=== PATIENT | female | born 1980 | race Two or more races ===

== ENCOUNTER → 2020-11-09 12:37 | Outpatient (BNVA) | payer OTHER, SELFPAY | PROVIDERS: PCP Internal Medicine; Visit Provider Internal Medicine | DX: R00.1 Bradycardia, unspecified (principal); R55 Syncope and collapse; R07.2 Precordial pain | CPT/HCPCS: 93005; 99202 ==

== ENCOUNTER → 2020-11-23 13:30 | Outpatient (REF) | payer OTHER, SELFPAY | LOC: HO.SL 13:30 | PROVIDERS: Visit Provider Internal Medicine | DX: G47.33 Obstructive sleep apnea (adult) (pediatric) (principal) | CPT/HCPCS: 95806 ==

== ENCOUNTER → 2020-12-06 12:57 | Outpatient (REF) | payer OTHER, SELFPAY ==
--- NOTE | 2020-12-06 13:00 | CA_ITS ---
Transthoracic Echocardiogram Patient (Last, First, Middle): Kellen Cohn, Gender: Female Date of : 1980 Age: 40 Procedure Date: 12/06/2020 Procedure Type: Transthoracic Echocardiogram Location: OP Height: 152.4 cm Weight: 72.58 kg BSA: 1.70 m2 Heart Rate: bpm BP: 90 / 60 mmHg Delinquent Tax Collection Assistant: LENNOX Huddleston MD: Claudio Wilkerson MD Chief Medical Director: Jose Enrique Paul MD Symptoms: R55 - Syncope and collapse Study Quality: Good ECG Rhythm: Sinus Conclusions: - Essentially normal study with trivial aortic regurgitation Findings Left Ventricle Normal left ventricular size, thickness, and systolic function. The visually estimated ejection fraction is between 60-65%. Diastolic function is normal for age. Right Ventricle Normal right ventricular cavity size and systolic function. Atria Both atria are normal in size. There is no evidence of interatrial shunt. Aortic Valve The aortic valve structure and function is likely normal. There is no aortic valve stenosis. There is trace (trivial) aortic valve regurgitation. Mitral Valve Normal mitral valve structure and function. There is trace mitral valve regurgitation. There is no mitral valve stenosis. Pulmonic Valve The pulmonic valve was not well visualized. Tricuspid Valve Likely normal tricuspid valve structure and function. There is trace tricuspid valve regurgitation. The right ventricular systolic pressure is normal. The right ventricular systolic pressure is 23 mmHg. Normal right atrial pressure. There is no evidence of pulmonary hypertension. Great Vessels All visible segments of the aorta are normal in size. The pulmonary artery was not well visualized. Venous The inferior vena cava is normal in size and collapses greater than 50% with inspiration. Pericardium/Pleural There is no evidence of pericardial effusion. Prior Study Comparison No previous study in the last 5 years for comparison Measurements M-Mode Liner Measurements Normals - Women/Men AOV Cusps: 2.00 1.5-2.6 cm/m2 2D Linear Measurements IVSd: 0.79 0.6-0.9/0.6-1.0 cm LVIDd: 4.47 3.9-5.3/4.2-5.9 cm LVIDd Index: 2.63 2.4-3.2/2.2-3.1 cm/m2 LVIDs: 3.26 2.0-3.6 cm LVPWd: 0.77 0.7-1.1 cm Ao Root: 3.10 2.1-3.5 cm LA Diam: 3.00 2.7-3.8/3.0-4.0 cm LAIDs Index: 1.76 1.5-2.3 cm/m2 LV Mass: 134.80 67-162/88-224 g LV Mass Index: 79.29 43-95/49-115 g/m2 LVOT Diam: 1.90 3.0+(-)1.3 cm 2D Systolic Function EF 4C: 57.70 >55% EF 2C: 67.70 >55% EF BiP: 61.50 >55% Mitral Valve MV Pk E: 1.01 MV PK A: 0.65 MV Decel Time: 278.00 E/A: 1.60 E'Lateral: 14.30 E'Medial: 9.68 E/E' Med: 10.40 E/E' Lat: 7.10 PHT: 81.00 MVA PHT: 2.[address]: 3.64 Aortic Valve AoV Pk Wade: 1.42 AoV Pk Grad: 8.00 AI Pk Wade: 3.[address]: 1.90 LVOT LVOT Pk Wade: 0.70 LVOT Mn Wade: 0.48 LVOT VTI: 0.16 LVOT Pk Grad: 2.00 LVOT Mn Grad: 1.00 LVOT Diam: 1.90 LVOT Area: 2.84 Diastolic Function MV Pk E: 1.01 MV Pk A: 0.65 E/A: 1.60 E'Medial: 9.68 E/E' Med: 10.40 E' Laterial: 14.30 E/E' Lat: 7.10 Tricuspid Valve TR Pk Wade: 2.22 TR Pk Grad: 20.00 RA Press: 3.00 RVSP: 23.00 Great Vessels Aorta Ao Root-2D: 3.10 2.0-3.7 cm Ao Asc: 3.00 2.1-3.4 cm Ao Arch: 2.40 Pulmonary Valve PV Pk Wade: 0.90 Peak PV Grad: 3.00 Updated in Other Vendor System with Status of Final Jose Enrique Paul MD electronically signed on 12/06/2020 6:07:27 PM with status of Final
== END ==
LOC: HO.CARD 12:57
PROVIDERS: Visit Provider Internal Medicine
DX: R55 Syncope and collapse (principal); R00.1 Bradycardia, unspecified
CPT/HCPCS: 93306

== ENCOUNTER 2020-12-06 14:03 | Emergency (ER) | payer OTHER, SELFPAY ==
[2020-12-06 14:08] VITALS: BP 121/82; PULSE 58; RESP 10; TEMP 37; O2SAT 99; BMI 31.2
--- NOTE | 2020-12-06 14:25 | XR_ITS ---
EXAMINATION: XR CHEST CLINICAL INFORMATION: Chest pain COMPARISON: Previous chest x-ray most recent June 2020 TECHNIQUE: Frontal view of the chest was obtained. FINDINGS: No significant abnormality is noted involving the heart, lungs, mediastinum, bony thorax or soft tissues. XR/XR chest 1V IMPRESSION: Unremarkable examination.
--- NOTE | 2020-12-06 14:25 | ECG_ITS ---
Test Reason : HYPOTENSION Blood Pressure : / mmHG Vent. Rate : 052 BPM Atrial Rate : 052 BPM P-R Int : 164 ms QRS Dur : 072 ms QT Int : 418 ms P-R-T Axes : 044 010 020 degrees QTc Int : 388 ms Sinus bradycardia with Sinus Arrhythmia Otherwise normal ECG When compared with ECG of 28-JUN-2020 16:20, Sinus rhythm has replaced Junctional rhythm Referred By: Olinda Tang Electronically Signed By:KAY LOAIZA MD
--- NOTE | 2020-12-06 14:37 | ED.CHESTPAIN ---
HPI - Chest Pain General Chief Complaint: Chest Pain Stated Complaint: cardiac issues Time Seen by Provider: 12/06/20 14:13 Mode of arrival: ambulatory History of Present Illness HPI narrative: 40-year-old female with a past medical history anxiety, bipolar, fibromyalgia, insomnia, migraines, sinus bradycardia, presenting to the ED from Cardiology/ECHO suite s/p feeling sharp/substernal chest pressure with associated lightheadedness, generalized fatigue/malaise. Admits symptoms have been going on times 2-3 weeks, with radiation to left arm and left arm tingling. Was evaluated by cardiology Dr. Wilkerson on 11/09 and sent for this echo. Reports symptoms are consistent, unchanged, not worse today. Per cardiology note patient with history of bradycardia x multiple years MD complaint: chest heaviness Related Data Home Medications Medication Instructions Recorded Confirmed duloxetine 60 mg capsule,delayed 60 mg PO DAILY 11/09/20 11/09/20 release famotidine 20 mg tablet 20 mg PO DAILY 11/09/20 11/09/20 sumatriptan succinate 100 mg tablet 100 mg PO ONCE tab 11/09/20 11/09/20 venlafaxine 75 mg capsule,extended 75 mg PO QAM 11/09/20 11/09/20 release 24 hr Allergies Allergy/AdvReac Type Severity Reaction Status Date / Time No Known Allergies Allergy Verified 12/06/20 14:14 [No Known Allergies*] Review of Systems Review of Systems: Constitutional: No Weight loss, No Fever, No Chills, + fatigue/malaise ENT/Mouth: No Ear Pain, No Nasal Congestion, No Sinus Pain, No sore throat, No Rhinorrhea Eyes: No Eye Pain, No Swelling, No Redness, No Foreign Body, No Discharge, No Vision Changes Cardiovascular: +Chest Pain, + SOB, No Dyspnea on Exertion, No Orthopnea, No Edema, No Palpitations Respiratory: No Cough, No Sputum, No Wheezing, No Smoke Exposure, No Dyspnea Gastrointestinal: No Nausea, No Vomiting, No Diarrhea, No Constipation, No Abdominal pain Musculoskeletal: No joint pain, No Myalgias, No Joint Swelling Skin: No Skin Lesions, No rash Neuro: +generalized Weakness, No Numbness, + left arm tingling, No Loss of Consciousness, + lightheadedness, No Headache Yes all other systems are reviewed and are negative [facility] Past Medical History Medical History (Updated 12/06/20 @ 16:53 by EMERALD Pandya) Anxiety Bipolar 1 disorder, depressed Fibromyalgia Insomnia Migraine Short-term memory loss Sinus bradycardia by electrocardiogram Family History Family History (Updated 11/09/20 @ 13:31 by DOMENIC Issa) Father No problems noted. Mother No problems noted. Social History Social History (Updated 11/09/20 @ 13:31 by DOMENIC Issa) Smoking Status: Current every day smoker Advance Directives: No Advance Directives Information Provided: Yes Physical Exam Vital Signs: Vital Signs: Last Vital Signs Temp 98.6 F 12/06/20 14:08 Pulse 53 12/06/20 16:57 Resp 16 12/06/20 16:57 BP 128/73 12/06/20 16:57 Pulse Ox 99 12/06/20 16:57 Body Mass Index 31.2 Course Course Course Narrative: -labs unremarkable including troponin discussed with patient including worrisome signs and symptoms and strict return precautions. Patient is to have close follow-up with Cardiology -orthostatic vital signs negative MDM - Chest Pain MDM Narrative Medical decision making narrative: 40-year-old female with a past medical history anxiety, bipolar, fibromyalgia, insomnia, migraines, sinus bradycardia, presenting to the ED from Cardiology/ECHO suite s/p feeling sharp/substernal chest pressure with associated lightheadedness, generalized fatigue/malaise. On exam VSS, NAD, playing on phone during exam, lungs CTA. Lower concern for ACS or PE, as symptoms are atypical. ?Viral syndrome/COVID-19. Low concern for pneumonia. Rule out metabolic abnormalities Plan: EKG, labs, CXR, re-evaluate Medical Records Data Attestation: I reviewed the patient's medical records. Lab Data Attestation: I reviewed the patient's lab results. Result diagrams: 12/06/20 15:39 12/06/20 15:39 Labs: Lab Results 12/06/20 12/06/20 12/06/20 Range/Units 15:25 15:37 15:38 WBC (4.8-10.8) X10*3/uL RBC (4.20-5.50) X10*6/uL Hgb (12.0-16.0) g/dl Hct (37-47) % MCV (80-98) fL MCH (27.0-33.0) pg MCHC (31.0-35.0) g/dl RDW (11.0-16.0) % Plt Count (160-400) X10*3/uL MPV Immature Gran % (Auto) (0.0-0.4) % Neut % (Auto) (45-73) % Lymph % (Auto) (20-40) % Brooke % (Auto) (2-11) % Eos % (Auto) (0-4) % Baso % (Auto) (0-2) % Lymph # (Auto) (1.2-4.9) X10*3/uL Brooke # (Auto) (0.1-1.2) X10*3/uL Eos # (Auto) (0.0-0.4) X10*3/uL Baso # (Auto) (0.0-0.2) X10*3/uL Abs Immat Gran (auto) (0.00-0.03) X10*3/uL Absolute Neuts (auto) (2.0-8.3) X10*3/uL Absolute Nucleated RBC (0.0-0.012) X10*3/uL Nucleated RBC % (auto) (0.0-0.2) /100WBC Hold Blue Top Sodium (135-145) mmol/L Potassium (3.3-5.1) mmol/L Chloride (96-108) mmol/L Carbon Dioxide (22-29) mmol/L Anion Gap (12-20) BUN (9-16) mg/dL Creatinine (0.5-1.4) mg/dL Estim Creat Clear Calc Estimated GFR Random Glucose (60-115) mg/dL Calcium (8.4-10.2) mg/dL Magnesium (1.6-2.6) mg/dL Total Bilirubin (0.0-1.0) mg/dL Direct Bilirubin (0.0-0.5) mg/dL AST (5-31) U/L ALT (0-31) U/L Alkaline Phosphatase (39-117) U/L Troponin I High Sens < 3.5 (<3.5-17.0) ng/L B-Natriuretic Peptide Cancelled 35 Total Protein (6.5-8.0) g/dL Albumin (3.5-5.0) g/dL TSH (0.32-4.0) uIU/mL Coronavirus (PCR) NEGATIVE (Negative) Influenza Type A (PCR) NEGATIVE (Negative) Influenza Type B (PCR) NEGATIVE (Negative) RSV RNA Qual (PCR) NEGATIVE (Negative) 12/06/20 12/06/20 12/06/20 Range/Units 15:38 15:39 15:39 WBC 6.1 (4.8-10.8) X10*3/uL RBC 4.65 (4.20-5.50) X10*6/uL Hgb 14.6 (12.0-16.0) g/dl Hct 42.2 (37-47) % MCV 90.8 (80-98) fL MCH 31.4 (27.0-33.0) pg MCHC 34.6 (31.0-35.0) g/dl RDW 12.3 (11.0-16.0) % Plt Count 164 (160-400) X10*3/uL MPV Not Reportable Immature Gran % (Auto) 0.5 H (0.0-0.4) % Neut % (Auto) 44.8 L (45-73) % Lymph % (Auto) 47.4 H (20-40) % Brooke % (Auto) 5.3 (2-11) % Eos % (Auto) 1.5 (0-4) % Baso % (Auto) 0.5 (0-2) % Lymph # (Auto) 2.9 (1.2-4.9) X10*3/uL Brooke # (Auto) 0.3 (0.1-1.2) X10*3/uL Eos # (Auto) 0.1 (0.0-0.4) X10*3/uL Baso # (Auto) 0.0 (0.0-0.2) X10*3/uL Abs Immat Gran (auto) 0.03 (0.00-0.03) X10*3/uL Absolute Neuts (auto) 2.7 (2.0-8.3) X10*3/uL Absolute Nucleated RBC 0.000 (0.0-0.012) X10*3/uL Nucleated RBC % (auto) 0.0 (0.0-0.2) /100WBC Hold Blue Top SEE NOTE Sodium 139 (135-145) mmol/L Potassium 4.1 (3.3-5.1) mmol/L Chloride 107 (96-108) mmol/L Carbon Dioxide 25 (22-29) mmol/L Anion Gap 11 L (12-20) BUN 6 L (9-16) mg/dL Creatinine 0.72 (0.5-1.4) mg/dL Estim Creat Clear Calc 92.3 Estimated GFR > 60 Random Glucose 73 (60-115) mg/dL Calcium 9.0 (8.4-10.2) mg/dL Magnesium 2.1 (1.6-2.6) mg/dL Total Bilirubin 0.6 (0.0-1.0) mg/dL Direct Bilirubin 0.3 (0.0-0.5) mg/dL AST 17 (5-31) U/L ALT 16 (0-31) U/L Alkaline Phosphatase 70 (39-117) U/L Troponin I High Sens (<3.5-17.0) ng/L B-Natriuretic Peptide Total Protein 7.4 (6.5-8.0) g/dL Albumin 4.1 (3.5-5.0) g/dL TSH 3.63 (0.32-4.0) uIU/mL Coronavirus (PCR) (Negative) Influenza Type A (PCR) (Negative) Influenza Type B (PCR) (Negative) RSV RNA Qual (PCR) (Negative) ECG Data ECG #1: Attestation: I personally reviewed and interpreted this ECG as follows: ECG interpretation date: 12/06/20 ECG interpretation time: 15:13 Interpretation: EKG sinus bradycardia rate 52. Nonischemic. QTC 388 Discharge Plan Discharge Clinical Impression: Atypical chest pain Patient Disposition: Home, Self-Care Instructions: Chest Pain (ED) Additional Instructions: Your blood work was reassuring today in the ED. You need to follow-up with her health center assistant. Make sure staying hydrated at home. Take Tylenol /Motrin for pain. If her symptoms persist or worsen, you have fever, shortness of breath, leg swelling return to the ED Prescriptions: No Action famotidine 20 mg tablet 20 mg PO DAILY RF: 0 sumatriptan succinate 100 mg tablet 100 mg PO ONCE RF: 0 duloxetine 60 mg capsule,delayed release(DR/EC) 60 mg PO DAILY RF: 0 venlafaxine 75 mg capsule,extended release 24hr 75 mg PO QA RF: 0 Referrals: Claudio Wilkerson MD [Physician] - 2 days
[2020-12-06 16:00] LABS: Imm Gran Abs Auto 0.03 X10*3/uL (0.00-0.03); Imm Gran Pct Auto 0.5 % (0.0-0.4); Neutrophils Absolute Auto 2.7 X10*3/uL (2.0-8.3); PLT CLUMP 1; Red Cell Distribution Width 12.3 % (11.0-16.0); SCAN SMEAR FLAG 1
[2020-12-06 16:02] LABS: Basophils Percent Auto 0.5 % (0-2); Eosinophils Absolute Auto 0.1 X10*3/uL (0.0-0.4); Eosinophils Percent Auto 1.5 % (0-4); Hematocrit 42.2 % (37-47); Hemoglobin 14.6 g/dl (12.0-16.0); Lymphocytes Absolute Auto 2.9 X10*3/uL (1.2-4.9); Lymphocytes Percent Auto 47.4 % (20-40); Mean Corpuscular HGB Conc 34.6 g/dl (31.0-35.0); Mean Corpuscular Hemoglobin 31.4 pg (27.0-33.0); Mean Corpuscular Volume 90.8 fL (80-98); Monocytes Absolute Auto 0.3 X10*3/uL (0.1-1.2); Monocytes Percent Auto 5.3 % (2-11); Neutrophils Percent Auto 44.8 % (45-73); Platelet Count 164 X10*3/uL (160-400); Red Blood Count 4.65 X10*6/uL (4.20-5.50); White Blood Count 6.1 X10*3/uL (4.8-10.8)
[2020-12-06] MEDS: 0.9 % Sodium Chloride 1,000 ML 999 ML IVCONT (16:14)
[2020-12-06 16:16] LABS: Alanine Aminotransferase 16 U/L (0-31); Albumin Level 4.1 g/dL (3.5-5.0); Alkaline Phosphatase 70 U/L (39-117); Anion Gap 11 (12-20); Aspartate Amino Transferase 17 U/L (5-31); Bilirubin Direct 0.3 mg/dL (0.0-0.5); Bilirubin Total 0.6 mg/dL (0.0-1.0); Blood Urea Nitrogen 6 mg/dL (9-16); Carbon Dioxide 25 mmol/L (22-29); Chloride 107 mmol/L (96-108); Creatinine Clr Calc Pharmacy 92.3; Estimated Glomerular Filt Rate > 60; Glucose Random 73 mg/dL (60-115); Magnesium 2.1 mg/dL (1.6-2.6); Potassium 4.1 mmol/L (3.3-5.1); Sodium 139 mmol/L (135-145); Total Protein 7.4 g/dL (6.5-8.0)
[2020-12-06 16:19] LABS: B Type Natriuretic Peptide 35 pg/mL (<100); Troponin-I High Sensitivity < 3.5 ng/L (<3.5-17.0)
[2020-12-06 16:21] LABS: MANUAL DIFF FLAG NO
[2020-12-06 16:29] LABS: Influenza A PCR NEGATIVE (Negative); Influenza B PCR NEGATIVE (Negative); Resp Syncy Virus RNA Qual PCR NEGATIVE (Negative); SARS COV2 PCR INHOUSE NEGATIVE (Negative)
[2020-12-06 16:36] LABS: TSH reflex Free T4 3.63 uIU/mL (0.32-4.0)
[2020-12-06 16:53] VITALS: BP 116/70; PULSE 55
[2020-12-06 16:54] VITALS: BP 120/75; PULSE 55
[2020-12-06 16:55] VITALS: BP 128/73; PULSE 60
[2020-12-06 16:57] VITALS: BP 128/73; PULSE 53; RESP 16; O2SAT 99
== END 2020-12-06 17:24 | disposition home or self-care (01) ==
PROVIDERS: Physician Assistant; Emergency Provider Emergency Medicine; PCP Internal Medicine
DX: R07.89 Other chest pain (principal); Z20.822 Contact with and (suspected) exposure to COVID-19; F17.200 Nicotine dependence, unspecified, uncomplicated
CPT/HCPCS: 0241U; 36415; 71045; 80048; 80076; 83735; 83880; 84443; 84484; 85025; 93005; 96360; 99284

== ENCOUNTER → 2020-12-20 13:09 | Outpatient (BNVA) | payer OTHER, SELFPAY | PROVIDERS: PCP Internal Medicine; Visit Provider Nurse Practitioner Family | DX: R07.2 Precordial pain (principal); R00.1 Bradycardia, unspecified; R55 Syncope and collapse | CPT/HCPCS: 99212 ==

== ENCOUNTER → 2021-02-28 08:52 | Outpatient (REF) | payer OTHER, SELFPAY ==
--- NOTE | 2021-02-28 08:55 | CA_ITS ---
Acquisition Time: 2021-02-28 09:57:42 Total Exercise Time: 00:07:54 Test Indications: Abnormal ECG Medications: DULOXETINE FAMOTIDINE VENLAFAXINE SUMATRIPTAN Protocol: MARKY Max HR: 157 BPM 87% of Pred: 180 BPM Max BP: 130/070 mmHG Max Work Load: 9.9 METS Exercise stress test using Marky protocol total of 7 min 54 sec. METS 9.90 and TAPHR up to 87 %. Pt had 4/10 atypical chest pain in L upper chest, that incresed to 6/10 at peak exercise. EKG with no arrhythmias, no ischemic changes seen during exercise or in recovery. Normotensive response to exercise. Test reviewed with Dr. Paul. Referred By: Claudio Wilkerson Overread By: Sherry Gerardo NP
--- NOTE | 2021-02-28 08:55 | ECG_ITS ---
Hook-up date: 2021-02-28 10:41:00 Duration: :28:00 Test Indications: UNSPEC. BRADYCARDIA Medications: 49263 QRS complexes 1 Ventricular ectopics which represent <1 % of total QRS comp. 5 Supraventricular ectopics which represent <1 % of total QRS comp. * Paced QRS complexs which represent % of total QRS comp. VENTRICULAR ECTOPY 1 Isolated 0 Bigeminal Cycles 0 Couplets 0 Runs 0 Beats in Runs * Beats LONGEST at * BPM at :: -- * Beats FASTEST at * BPM at :: -- SUPRAVENTRICULAR ECTOPY 5 Isolated 0 Couplets 0 Runs 0 Beats in Runs * Beats LONGEST at * BPM at :: -- * Beats FASTEST at * BPM at :: -- HEART RATES 43 MIN at 03:43:09 2021-03-01 65 AVG 126 MAX at 20:38:36 2021-02-28 LONGEST RR 1.6800 secs at 03:43:03 2021-03-01 S-T LEVELS Channel 1 - 128 mm at 10:41:00 2021-02-28 - 128 mm at 10:41:00 2021-02-28 Channel 2 - 128 mm at 10:41:00 2021-02-28 - 128 mm at 10:41:00 2021-02-28 Channel 3 - 128 mm at 03:00:01 -- - 128 mm at 03:00:01 Basic rhythm Normal sinus rhythm No long pause or profound bradycardia Frequent Sinus bradycardia , 37% of time HR < 60 bpm No dangerous dysrhythm periods Patient did not report any symptoms in the diary Referred By: Claudio Wilkerson Overread By: KAY LOAIZA MD
== END ==
LOC: HO.CARD 08:52
PROVIDERS: Visit Provider Internal Medicine
DX: R07.2 Precordial pain (principal); R00.1 Bradycardia, unspecified
CPT/HCPCS: 93017; 93018; 93225; 93226

== ENCOUNTER → 2021-03-13 11:12 | Outpatient (BNVA) | payer OTHER, SELFPAY | PROVIDERS: PCP Internal Medicine; Visit Provider Nurse Practitioner Family | DX: R07.2 Precordial pain (principal); R00.1 Bradycardia, unspecified; R55 Syncope and collapse | CPT/HCPCS: 99212 ==

== ENCOUNTER 2021-03-13 12:22 | Emergency (ER) | payer OTHER, SELFPAY ==
--- NOTE | ~2021-03-13 | XR_ITS ---
EXAMINATION: XR CHEST CLINICAL INFORMATION: Cough, chills COMPARISON: Chest radiographs 12/06/2020, 06/28/2020 TECHNIQUE: Portable upright AP view of the chest was obtained. FINDINGS: The lungs are clear. The vascularity is normal. There is no airspace consolidation or groundglass opacity. The costophrenic sulci are clear. The heart is normal in size. The hilar and mediastinal contours are unremarkable. No acute bony abnormality. XR/XR chest 1V IMPRESSION: Unremarkable examination.
--- NOTE | ~2021-03-13 | US_ITS ---
EXAMINATION: US ABDOMEN LIMITED CLINICAL INFORMATION: Elevated LFTs. COMPARISON: CT abdomen and pelvis with contrast 05/20/2019, ultrasound abdomen 02/24/2018 TECHNIQUE: Real-time imaging of the right upper quadrant abdominal viscera. FINDINGS: PANCREAS: The pancreas is largely obscured by bowel gas and not clearly imaged. LIVER: The liver is within normal size and is smooth in contour. The parenchyma is homogeneous and within normal. There is no focal hepatic parenchymal lesion or intrahepatic ductal dilatation. Specular echo without shadowing adjacent to posterior aspect left lobe is likely related to a surgical clip from prior cholecystectomy. Doppler shows portal flow towards the liver. GALLBLADDER: Surgically absent. COMMON BILE DUCT: Normal in caliber measuring 0.5 cm in diameter. No visible ductal calculus. RIGHT KIDNEY: Normal. No hydronephrosis. No renal calculi or focal parenchymal lesions. The kidney measures 10.3 cm in maximum dimension. FREE FLUID: None. US/US abdomen limited IMPRESSION: 1. Prior cholecystectomy. No ductal dilatation. 2. Pancreas obscured by bowel gas. 3. No right hydronephrosis.
[2021-03-13 13:13] VITALS: BP 92/50; PULSE 72; RESP 18; TEMP 37.2; O2SAT 94; BMI 32.2
--- NOTE | 2021-03-13 13:23 | ECG_ITS ---
Test Reason : WEAKNESS Blood Pressure : / mmHG Vent. Rate : 052 BPM Atrial Rate : 052 BPM P-R Int : 162 ms QRS Dur : 074 ms QT Int : 428 ms P-R-T Axes : 035 014 045 degrees QTc Int : 398 ms Sinus bradycardia with sinus arrhythmia Otherwise normal ECG When compared with ECG of 06-DEC-2020 15:13, No significant changes seen Referred By: Genesis Barragan Electronically Signed By:Franki Crooks
--- NOTE | 2021-03-13 14:02 | ED.GENADULT ---
HPI - General Adult General Chief complaint: General Medical Stated complaint: weakness Time Seen by Provider: 03/13/21 13:22 Source: patient Mode of arrival: ambulatory Limitations: no limitations History of Present Illness HPI narrative: 40 y/o female with history of depression, migraines, GERD, hx syncope in the past, hx hysterectomy 2009 who presents to the ED with generalized weakness, nausea and diarrhea for the last 4-5 days. She states her stools have been very loose and she is having multiple episodes per day. She is nauseated and vomited a few times yesterday. She has cramping central abdominal pain that comes and goes, often right before she has a BM. No blood in her vomit or stools. She reports chills yesterday but no episodes of fever. She has been having a dry cough for the last few months with intermittent SOB. No PAINTING or chest pain. She was recently around her brother who was just diagnosed with COVID-19. MD complaint: N/V/D & generalized weakness Onset (ago): day(s) (5) Location: abdomen Radiation: non-radiation Severity: moderate Quality: aching Pain Consistency: intermittent Relieving factors: none Exacerbating factors: eating Associated symptoms: cough, fever/chills, headaches, loss of appetite, malaise, nausea/vomiting and weakness Treatments prior to arrival: none Related Data Home Medications Medication Instructions Recorded Confirmed duloxetine 60 mg capsule,delayed 60 mg PO DAILY 11/09/20 03/13/21 release famotidine 20 mg tablet 20 mg PO DAILY 11/09/20 03/13/21 sumatriptan succinate 100 mg tablet 100 mg PO ONCE tab 11/09/20 03/13/21 venlafaxine 75 mg capsule,extended 75 mg PO QAM 11/09/20 03/13/21 release 24 hr gabapentin 100 mg capsule 100 mg PO TID 12/20/20 03/13/21 Previous Rx's Medication Instructions Recorded loperamide [Imodium A-D] 2 mg PO Q4H PRN #20 cap 03/13/21 ondansetron HCl [Zofran] 4 mg PO Q8H PRN #7 tab 03/13/21 Allergies Allergy/AdvReac Type Severity Reaction Status Date / Time No Known Allergies Allergy Verified 03/13/21 13:13 [No Known Allergies*] Review of Systems Review of Systems: Constitutional: No Fever, + Chills ENT/Mouth: No sore throat, No Rhinorrhea, No Swallowing Difficulty Eyes: No Eye Pain, No Swelling, No Redness Cardiovascular: No Chest Pain, No SOB, No Orthopnea, No Edema Respiratory: + Cough, No Sputum, No Wheezing, No dyspnea Gastrointestinal: + Nausea, + Vomiting, + Diarrhea, + abdominal Pain, No Hematochezia, No Melena Genitourinary: No Dysuria, No Urinary Frequency, No Hematuria Musculoskeletal: No joint pain, + Myalgias Skin: No Skin Lesions, No rash Neuro: + Weakness, No Numbness, No Dizziness, + Headache Psych: No Anxiety/Panic, No Depression Heme/Lymph: No Bruising, No Lymphadenopathy Endocrine: No Polyuria, No Polydipsia PMFSH Past Medical History Attestation statement: The following information was validated with the patient. Medical History Anxiety Bipolar 1 disorder, depressed Depression Fibromyalgia Gastroenteritis Insomnia Migraine Short-term memory loss Sinus bradycardia by electrocardiogram Surgical History (Updated 03/13/21 @ 13:15 by Keisha Hamilton) H/O: hysterectomy Family History Family History Father No problems noted. Mother No problems noted. Social History Social History Smoking Status: Current every day smoker Advance Directives: Yes Advance Directives Information Provided: Yes Advance Directives on File: No Patient : No Physical Exam Vital Signs: Vital Signs: Last Vital Signs Temp 99.0 F 03/13/21 13:13 Pulse 51 03/13/21 14:06 Resp 16 03/13/21 14:06 BP 101/65 03/13/21 14:06 Pulse Ox 97 03/13/21 14:06 Body Mass Index 32.2 Appearance: Alert. Oriented X3. No acute distress. Eyes: Pupils equal, round and reactive to light. ENT: Pharynx normal. Neck: Normal inspection. Neck supple. CVS: Normal heart rate and rhythm. Pulses normal. Respiratory: No respiratory distress. Breath sounds normal. Abdomen: Soft with mild epigastric tenderness, no rebound or guarding. +BS x4 Skin: Skin warm and dry. Normal skin color. Normal skin turgor. No rashes. Extremities: No lower extremity edema. Neuro: Oriented X 3. No motor deficit. No sensory deficit. Course Course Course Narrative: 40 y/o female presenting with cough, generalized weakness diarrhea and abdominal cramps. Possible COVID exposure. BP is soft on arrival but she states this is her baseline BP. She is not tachycardic or febrile, she appears well. Will get lab workup and COVID swab. IVF ordered. Will reassess. Reevaluation(s) Reevaluation #1: Lab workup is largely unremarkable. AST/ALT are elevated with normal ALP and bilirubins. She is s/p cholecystectomy. Reports some RUQ discomfort. Will get CARLO U/S for further assessment. Reevaluation #2: RUQ U/S is unremarkable.Viral PCR negative. No episodes of diarrhea here. She remains hemodyncamically stable with no signifiacant metabolic derangements. She is stable for d/c home with symptomatic management at home. She was encouraged to f/u with her PCP or come back to the ER if symptoms worsen. Medical Decision Making Lab Data Result diagrams: 03/13/21 14:25 03/13/21 14:25 Labs: Lab Results 03/13/21 03/13/21 03/13/21 Range/Units 14:25 14:25 14:25 WBC 4.9 (4.8-10.8) X10*3/uL RBC 4.53 (4.20-5.50) X10*6/uL Hgb 14.3 (12.0-16.0) g/dl Hct 42.0 (37-47) % MCV 92.7 (80-98) fL MCH 31.6 (27.0-33.0) pg MCHC 34.0 (31.0-35.0) g/dl RDW 12.7 (11.0-16.0) % Plt Count 226 D (160-400) X10*3/uL MPV 10.6 (9.4-12.3) fL Immature Gran % (Auto) 0.2 (0.0-0.4) % Neut % (Auto) 43.6 L (45-73) % Lymph % (Auto) 44.9 H (20-40) % [place] % (Auto) 6.2 (2-11) % Eos % (Auto) 4.3 H (0-4) % Baso % (Auto) 0.8 (0-2) % Lymph # (Auto) 2.2 (1.2-4.9) X10*3/uL [place] # (Auto) 0.3 (0.1-1.2) X10*3/uL Eos # (Auto) 0.2 (0.0-0.4) X10*3/uL Baso # (Auto) 0.0 (0.0-0.2) X10*3/uL Abs Immat Gran (auto) 0.01 (0.00-0.03) X10*3/uL Absolute Neuts (auto) 2.1 (2.0-8.3) X10*3/uL Absolute Nucleated RBC 0.000 (0.0-0.012) X10*3/uL Nucleated RBC % (auto) 0.0 (0.0-0.2) /100WBC Hold Blue Top SEE NOTE Sodium 140 (135-145) mmol/L Potassium 4.9 (3.3-5.1) mmol/L Chloride 104 (96-108) mmol/L Carbon Dioxide 28 (22-29) mmol/L Anion Gap 13 (12-20) BUN 8 L (9-16) mg/dL Creatinine 0.74 (0.5-1.4) mg/dL Estim Creat Clear Calc 91.3 Estimated GFR > 60 Random Glucose 71 (60-115) mg/dL Lactic Acid (0.5-2.0) mmol/L Calcium 9.5 (8.4-10.2) mg/dL Magnesium 2.1 (1.6-2.6) mg/dL Total Bilirubin 0.7 (0.0-1.0) mg/dL Direct Bilirubin 0.3 (0.0-0.5) mg/dL AST 149 H (5-31) U/L ALT 213 H (0-31) U/L Alkaline Phosphatase 89 D (39-117) U/L Total Protein 7.0 (6.5-8.0) g/dL Albumin 4.0 (3.5-5.0) g/dL Coronavirus (PCR) (Negative) Influenza Type A (PCR) (Negative) Influenza Type B (PCR) (Negative) RSV RNA Qual (PCR) (Negative) 03/13/21 03/13/21 Range/Units 14:25 14:25 WBC (4.8-10.8) X10*3/uL RBC (4.20-5.50) X10*6/uL Hgb (12.0-16.0) g/dl Hct (37-47) % MCV (80-98) fL MCH (27.0-33.0) pg MCHC (31.0-35.0) g/dl RDW (11.0-16.0) % Plt Count (160-400) X10*3/uL MPV (9.4-12.3) fL Immature Gran % (Auto) (0.0-0.4) % Neut % (Auto) (45-73) % Lymph % (Auto) (20-40) % [place] % (Auto) (2-11) % Eos % (Auto) (0-4) % Baso % (Auto) (0-2) % Lymph # (Auto) (1.2-4.9) X10*3/uL [place] # (Auto) (0.1-1.2) X10*3/uL Eos # (Auto) (0.0-0.4) X10*3/uL Baso # (Auto) (0.0-0.2) X10*3/uL Abs Immat Gran (auto) (0.00-0.03) X10*3/uL Absolute Neuts (auto) (2.0-8.3) X10*3/uL Absolute Nucleated RBC (0.0-0.012) X10*3/uL Nucleated RBC % (auto) (0.0-0.2) /100WBC Hold Blue Top Sodium (135-145) mmol/L Potassium (3.3-5.1) mmol/L Chloride (96-108) mmol/L Carbon Dioxide (22-29) mmol/L Anion Gap (12-20) BUN (9-16) mg/dL Creatinine (0.5-1.4) mg/dL Estim Creat Clear Calc Estimated GFR Random Glucose (60-115) mg/dL Lactic Acid 1.6 (0.5-2.0) mmol/L Calcium (8.4-10.2) mg/dL Magnesium (1.6-2.6) mg/dL Total Bilirubin (0.0-1.0) mg/dL Direct Bilirubin (0.0-0.5) mg/dL AST (5-31) U/L ALT (0-31) U/L Alkaline Phosphatase (39-117) U/L Total Protein (6.5-8.0) g/dL Albumin (3.5-5.0) g/dL Coronavirus (PCR) NEGATIVE (Negative) Influenza Type A (PCR) NEGATIVE (Negative) Influenza Type B (PCR) NEGATIVE (Negative) RSV RNA Qual (PCR) NEGATIVE (Negative) ECG Data Attestation: I personally reviewed and interpreted this ECG as follows: Interpretation: sinus bradycardia with premature PACs, HR 52 bpm, normal VA interval, normal QTc, no ST segment elevations or depressions. Discharge Plan Discharge Clinical Impression: Diarrhea Qualifiers: Diarrhea type: unspecified type Qualified Code(s): R19.7 - Diarrhea, unspecified Patient Disposition: Home, Self-Care Instructions: Acute Diarrhea (ED) Additional Instructions: Your lab workup today was unremarkable. Your liver enzymes were up slightly but your liver ultrasound was normal. Recommend following up with your doctor for repeat blood work within the next couple of weeks to ensure resolution. Recommend over the counter Pepto Bismol for upset stomach and diarrhea. Take the prescribed medication as needed for loose stool. Follow up with your doctor next week. Prescriptions: New loperamide [Imodium A-D] 2 mg capsule 2 mg PO Q4H PRN (Reason: loose stool) Qty: 20 RF: 0 ondansetron HCl [Zofran] 4 mg tablet 4 mg PO Q8H PRN (Reason: nausea and vomiting) Qty: 7 RF: 0 No Action famotidine 20 mg tablet 20 mg PO DAILY RF: 0 sumatriptan succinate 100 mg tablet 100 mg PO ONCE RF: 0 duloxetine 60 mg capsule,delayed release(DR/EC) 60 mg PO DAILY RF: 0 venlafaxine 75 mg capsule,extended release 24hr 75 mg PO QAM RF: 0 gabapentin 100 mg capsule 100 mg PO TID RF: 0 Interventions: ED Discharge Assessment Last Done: 03/13/21 17:20 Discharge Date/Time: 03/13/21 17:20
[2021-03-13 14:06] VITALS: BP 101/65; PULSE 51; RESP 16; O2SAT 97
[2021-03-13] MEDS: 0.9 % Sodium Chloride 1,000 ML 999 ML IVCONT (14:28)
[2021-03-13 14:33] LABS: MANUAL DIFF FLAG NO
[2021-03-13 14:35] LABS: Basophils Percent Auto 0.8 % (0-2); Eosinophils Absolute Auto 0.2 X10*3/uL (0.0-0.4); Eosinophils Percent Auto 4.3 % (0-4); Hemoglobin 14.3 g/dl (12.0-16.0); Imm Gran Abs Auto 0.01 X10*3/uL (0.00-0.03); Imm Gran Pct Auto 0.2 % (0.0-0.4); Lymphocytes Absolute Auto 2.2 X10*3/uL (1.2-4.9); Lymphocytes Percent Auto 44.9 % (20-40); Mean Corpuscular Hemoglobin 31.6 pg (27.0-33.0); Mean Corpuscular Volume 92.7 fL (80-98); Mean Platelet Volume 10.6 fL (9.4-12.3); Monocytes Absolute Auto 0.3 X10*3/uL (0.1-1.2); Monocytes Percent Auto 6.2 % (2-11); Neutrophils Absolute Auto 2.1 X10*3/uL (2.0-8.3); Neutrophils Percent Auto 43.6 % (45-73); Platelet Count 226 X10*3/uL (160-400); Red Blood Count 4.53 X10*6/uL (4.20-5.50); Red Cell Distribution Width 12.7 % (11.0-16.0); White Blood Count 4.9 X10*3/uL (4.8-10.8)
[2021-03-13 14:56] LABS: Lactic Acid 1.6 mmol/L (0.5-2.0)
[2021-03-13 15:23] LABS: Influenza A PCR NEGATIVE (Negative); Influenza B PCR NEGATIVE (Negative); Resp Syncy Virus RNA Qual PCR NEGATIVE (Negative); SARS COV2 PCR INHOUSE NEGATIVE (Negative)
[2021-03-13 15:31] LABS: Alanine Aminotransferase 213 U/L (0-31); Alkaline Phosphatase 89 U/L (39-117); Anion Gap 13 (12-20); Aspartate Amino Transferase 149 U/L (5-31); Bilirubin Direct 0.3 mg/dL (0.0-0.5); Bilirubin Total 0.7 mg/dL (0.0-1.0); Blood Urea Nitrogen 8 mg/dL (9-16); Calcium 9.5 mg/dL (8.4-10.2); Carbon Dioxide 28 mmol/L (22-29); Chloride 104 mmol/L (96-108); Creatinine Clr Calc Pharmacy 91.3; Estimated Glomerular Filt Rate > 60; Glucose Random 71 mg/dL (60-115); Magnesium 2.1 mg/dL (1.6-2.6); Potassium 4.9 mmol/L (3.3-5.1); Sodium 140 mmol/L (135-145)
== END 2021-03-13 17:20 | disposition home or self-care (01) ==
PROVIDERS: Physician Assistant; Emergency Provider Emergency Medicine; PCP Internal Medicine
DX: R19.7 Diarrhea, unspecified (principal); Z20.822 Contact with and (suspected) exposure to COVID-19; F17.200 Nicotine dependence, unspecified, uncomplicated
CPT/HCPCS: 0241U; 36415; 71045; 76705; 80048; 80076; 83605; 83735; 85025; 87040; 93005; 96360; 99283; 99284

== ENCOUNTER → 2021-12-14 10:18 | Outpatient (BNVA) | payer OTHER, SELFPAY | PROVIDERS: PCP Internal Medicine; Referring Provider Internal Medicine; Visit Provider Internal Medicine | DX: R07.2 Precordial pain (principal); R00.1 Bradycardia, unspecified | CPT/HCPCS: 93005; 99212 ==

== ENCOUNTER 2022-07-19 11:36 | Emergency (ER) | payer OTHER, SELFPAY ==
--- NOTE | ~2022-07-19 | CT_ITS ---
EXAMINATION: CT ABDOMEN AND PELVIS WITHOUT CONTRAST CLINICAL INFORMATION: Abdominal pain COMPARISON: 05/20/2019 TECHNIQUE: Multidetector volumetric imaging was performed from the superior aspect of the liver through the pubic symphysis. Sagittal and coronal reformatted images were obtained on the technologist's workstation. This CT examination was performed using dose optimization techniques as appropriate, variously including the following: *Automated exposure control *Adjustment of mA and/or kV according to patient size (this includes techniques or standardized protocols for targeted exams where dose is matched to indication/reason for exam; i.e. extremities or head) *Use of iterative reconstruction technique DLP: 591 mGy-cm FINDINGS: LUNG BASES: The visualized lung bases are unremarkable. LIVER, GALLBLADDER, AND BILIARY TREE: The liver is normal in size, shape, and attenuation. No focal hepatic lesion or biliary ductal dilatation is present. Cholecystectomy. PANCREAS: Unremarkable. SPLEEN: Unremarkable. ADRENAL GLANDS: Unremarkable. KIDNEYS AND URETERS: The kidneys are normal in size, shape, and attenuation. No hydronephrosis, hydroureter, or calculi seen. No perinephric stranding. BLADDER: Unremarkable. GASTROINTESTINAL TRACT: The stomach is unremarkable. Normal caliber of the small bowel. No obstruction. Normal appendix. No colonic wall thickening or inflammatory change. No free air or free fluid. ABDOMINAL WALL: No significant hernia is appreciated. LYMPH NODES: Normal. VASCULAR: Unremarkable. PELVIC VISCERA: The uterus is not seen. No adnexal mass. OSSEOUS STRUCTURES: No acute or suspicious osseous abnormality. Mild degenerative change of L5-S1. CT/CT abdomen pelvis wo IV con IMPRESSION: No acute findings in the abdomen or pelvis. No inflammatory changes. Fleischner guidelines were followed.
[2022-07-19 11:47] VITALS: BP 110/68; PULSE 42; RESP 18; TEMP 36.9; O2SAT 98; BMI 31.2
--- NOTE | 2022-07-19 11:50 | ECG_ITS ---
Test Reason : vomitting Blood Pressure : / mmHG Vent. Rate : 045 BPM Atrial Rate : 045 BPM P-R Int : 160 ms QRS Dur : 072 ms QT Int : 444 ms P-R-T Axes : 059 018 044 degrees QTc Int : 384 ms Sinus bradycardia Otherwise normal ECG When compared with ECG of 13-MAR-2021 13:48, No significant change was found Referred By: Generic ED Physician Electronically Signed By:SHANE SCHWARZ
[2022-07-19 12:06] LABS: MANUAL DIFF FLAG NO
[2022-07-19 12:12] LABS: Basophils Percent Auto 0.6 % (0-2); Eosinophils Absolute Auto 0.2 X10*3/uL (0.0-0.4); Eosinophils Percent Auto 3.7 % (0-4); Hematocrit 45.4 % (37.0-47.0); Hemoglobin 15.4 g/dl (12.0-16.0); Imm Gran Abs Auto 0.02 X10*3/uL (0.00-0.03); Imm Gran Pct Auto 0.3 % (0.0-0.4); Lymphocytes Absolute Auto 2.6 X10*3/uL (1.2-4.9); Lymphocytes Percent Auto 41.6 % (20-40); Mean Corpuscular HGB Conc 33.9 g/dl (31.0-35.0); Mean Corpuscular Hemoglobin 30.8 pg (27.0-33.0); Mean Corpuscular Volume 90.8 fL (80.0-98.0); Mean Platelet Volume 10.6 fL (9.4-12.3); Monocytes Absolute Auto 0.4 X10*3/uL (0.1-1.2); Monocytes Percent Auto 5.8 % (2-11); Platelet Count 223 X10*3/uL (160-400); Red Cell Distribution Width 12.5 % (11.0-16.0); White Blood Count 6.2 X10*3/uL (4.8-10.8)
[2022-07-19 12:25] LABS: Anion Gap 14 (12-20); Blood Urea Nitrogen 5 mg/dL (9-16); Calcium 9.3 mg/dL (8.4-10.2); Carbon Dioxide 24 mmol/L (22-29); Chloride 107 mmol/L (96-108); Creatinine Clr Calc Pharmacy 81.3; Estimated Glomerular Filt Rate > 60; Glucose Random 194 mg/dL (60-115); Potassium 4.6 mmol/L (3.3-5.1); Sodium 140 mmol/L (135-145)
[2022-07-19 13:39] LABS: Magnesium 2.1 mg/dL (1.6-2.6)
[2022-07-19 16:18] LABS: Appearance Urine Cloudy; Color Urine Dark Yellow; Glucose Urine UA Negative (Negative); Leukocyte Esterase Urine Trace (Negative); Nitrite Urine Negative (Negative); Specific Gravity - Urine 1.025 (1.005-1.025); UMIC TRIGGER UACC YES; Urine Blood Negative (Negative); Urine Ketones Trace mg/dL (Negative); Urine Protein Trace mg/dL (Neg-Trace)
[2022-07-19 16:20] LABS: UPreg QC Valid YES; Urine Pregnancy NEGATIVE (NEGATIVE)
[2022-07-19 16:28] LABS: Bacteria Urine Trace (None Seen); Hyaline Casts Urine 0-2 /LPF (0-2); RBC Urine 0-2 /HPF (0-2); WBC Urine 0-5 /HPF (0-5)
[2022-07-19 20:46] VITALS: BP 128/73; PULSE 45; RESP 17; O2SAT 97
--- NOTE | 2022-07-19 21:48 | ED.NAVMDI ---
HPI - Nausea/Vomiting/Diarrhea General Chief complaint: Nausea/Vomiting/Diarrhea Stated complaint: diarrhea, chest pain Time Seen by Provider: 07/19/22 21:34 History of Present Illness HPI Narrative: Patient is a 41-year-old female presents today with having abdominal pain nausea vomiting diarrhea associated with some chest pain. Patient claims the chest pain is fairly constant. It is nonradiating. Not associated with diaphoresis. Is not associated with position. The chest pain has been ongoing for years. Patient had this worked up at [facility] in the past. Feels a little sharper than usual. No history of blood clots. Positive history of smoking. No history diabetes, hypertension, high cholesterol. Patient from home. Diarrhea is brown in color no recent antibiotics no recent travel. No leg swelling. Not on control pills. Related Data Home Medications Medication Instructions Recorded Confirmed duloxetine 60 mg capsule,delayed 60 mg PO DAILY 11/09/20 12/14/21 release famotidine 20 mg tablet 20 mg PO DAILY 11/09/20 12/14/21 sumatriptan succinate 100 mg tablet 100 mg PO ONCE 11/09/20 12/14/21 venlafaxine 75 mg capsule,extended 75 mg PO QAM 11/09/20 12/14/21 release 24 hr gabapentin 100 mg capsule 100 mg PO TID 12/20/20 12/14/21 Previous Rx's Medication Instructions Recorded loperamide 2 mg capsule (Imodium 2 mg PO Q4H PRN loose stool #20 03/13/21 A-D) caps ondansetron HCl 4 mg tablet 4 mg PO Q8H PRN nausea and 03/13/21 (Zofran) vomiting #7 tabs Allergies Allergy/AdvReac Type Severity Reaction Status Date / Time No Known Allergies Allergy Verified 12/14/21 10:23 [No Known Allergies*] Review of Systems Review of Systems: Positive chest pain Positive abdominal pain nausea vomiting diarrhea Yes all other systems are reviewed and are negative PMFSH Past Medical History Attestation statement: The following information was validated with the patient. Medical History Anxiety Bipolar 1 disorder, depressed Depression Fibromyalgia Gastroenteritis Insomnia Migraine Short-term memory loss Sinus bradycardia by electrocardiogram Surgical History H/O: hysterectomy Family History Family History Father No problems noted. Mother No problems noted. Social History Social History (Updated 12/14/21 @ 10:27 by DOMENIC Dockery) Patient Tobacco Use Status: Current everyday Tobacco user Cigarettes Per Day: 5 Advance Directives: No Physical Exam Vital Signs: Vital Signs: Last Vital Signs Temp 98.1 F 07/19/22 23:25 Pulse 39 L 07/19/22 23:25 Resp 15 07/19/22 23:25 BP 127/58 L 07/19/22 23:25 Pulse Ox 99 07/19/22 23:25 O2 Del Method 07/19/22 23:25 BMI result Body Mass Index 31.2 Appearance: Alert. Oriented X3. No acute distress. Eyes: Pupils equal, round and reactive to light. ENT: Pharynx normal. Neck: Normal inspection. Neck supple. No lymph nodes noted. No crepitus CVS: Normal heart rate and rhythm. Pulses normal. Normal S1 and S2 Respiratory: No respiratory distress. Breath sounds normal. No Wheezing. No rales Abdomen: Soft and nontender. No rigidity. No distention. good BS x4 Skin: Skin warm and dry. Normal skin color. Normal skin turgor. Extremities: No lower extremity edema. Neurovascular intact to all extremities. No Lacerations. No Rash Neuro: Oriented X 3. No motor deficit. No sensory deficit. Moving all extermities. No slurred speech MDM - Nausea/Vomiting/Diarrhea MDM Narrative Medical decision making narrative: Labs unremarkable. Patient CT scan of the abdomen is negative for any obstruction, abscess, perforation. EKG showed sinus bradycardia rate approximately 45 ER cares QT with a normal axis no acute ST segment elevation noted. Patient TSH is normal. No evidence for hypo or hyperthyroid. Question chest pain has been ongoing for greater than 24 hours in fact is in going on for years. The troponin was negative. Will discharge patient home. Of note patient's chemistry did return elevated sugar. Question diabetes will need follow-up on an outpatient basis. Patient is in stable condition. Medical Records Attestation: I reviewed the patient's medical records. Lab Data Attestation: I reviewed the patient's lab results. Result diagrams: 07/19/22 12:02 07/19/22 12:02 Labs: Lab Results 07/19/22 07/19/22 07/19/22 Range/Units 12:02 12:02 15:42 WBC 6.2 (4.8-10.8) X10*3/uL RBC 5.00 (4.20-5.50) X10*6/uL Hgb 15.4 (12.0-16.0) g/dl Hct 45.4 (37.0-47.0) % MCV 90.8 (80.0-98.0) fL MCH 30.8 (27.0-33.0) pg MCHC 33.9 (31.0-35.0) g/dl RDW 12.5 (11.0-16.0) % Plt Count 223 (160-400) X10*3/uL MPV 10.6 (9.4-12.3) fL Immature Gran % (Auto) 0.3 (0.0-0.4) % Neut % (Auto) 48.0 (45-73) % Lymph % (Auto) 41.6 H (20-40) % [place] % (Auto) 5.8 (2-11) % Eos % (Auto) 3.7 (0-4) % Baso % (Auto) 0.6 (0-2) % Lymph # (Auto) 2.6 (1.2-4.9) X10*3/uL [place] # (Auto) 0.4 (0.1-1.2) X10*3/uL Eos # (Auto) 0.2 (0.0-0.4) X10*3/uL Baso # (Auto) 0.0 (0.0-0.2) X10*3/uL Abs Immat Gran (auto) 0.02 (0.00-0.03) X10*3/uL Absolute Neuts (auto) 3.0 (2.0-8.3) x10*3/uL Absolute Nucleated RBC 0.000 (0.0-0.012) X10*3/uL Nucleated RBC % (auto) 0.0 (0.0-0.2) /100WBC Sodium 140 (135-145) mmol/L Potassium 4.6 (3.3-5.1) mmol/L Chloride 107 (96-108) mmol/L Carbon Dioxide 24 (22-29) mmol/L Anion Gap 14 (12-20) BUN 5 L (9-16) mg/dL Creatinine 0.81 (0.5-1.4) mg/dL Estim Creat Clear Calc 81.3 Estimated GFR > 60 Random Glucose 194 H (60-115) mg/dL Calcium 9.3 (8.4-10.2) mg/dL Magnesium 2.1 (1.6-2.6) mg/dL Troponin I High Sens (<3.5-17.0) ng/L TSH 1.12 (0.32-4.0) uIU/mL Urine Color Dark Yellow Urine Appearance Cloudy Urine pH 7.0 (5.0-9.0) Ur Specific [place] 1.025 (1.005-1.025) Urine Protein Trace (Neg-Trace) mg/dL Urine Glucose (UA) Negative (Negative) mg/dL Urine Ketones Trace (Negative) mg/dL Urine Blood Negative (Negative) Urine Nitrite Negative (Negative) Ur Leukocyte Esterase Trace H (Negative) Urine RBC 0-2 (0-2) /HPF Urine WBC 0-5 (0-5) /HPF Ur Squamous Epith Cells 3-5 (0-2) /HPF Urine Bacteria Trace (None Seen) Hyaline Casts 0-2 (0-2) /LPF Urine Test (NEGATIVE) 07/19/22 07/19/22 Range/Units 15:42 22:56 WBC (4.8-10.8) X10*3/uL RBC (4.20-5.50) X10*6/uL Hgb (12.0-16.0) g/dl Hct (37.0-47.0) % MCV (80.0-98.0) fL MCH (27.0-33.0) pg MCHC (31.0-35.0) g/dl RDW (11.0-16.0) % Plt Count (160-400) X10*3/uL MPV (9.4-12.3) fL Immature Gran % (Auto) (0.0-0.4) % Neut % (Auto) (45-73) % Lymph % (Auto) (20-40) % [place] % (Auto) (2-11) % Eos % (Auto) (0-4) % Baso % (Auto) (0-2) % Lymph # (Auto) (1.2-4.9) X10*3/uL [place] # (Auto) (0.1-1.2) X10*3/uL Eos # (Auto) (0.0-0.4) X10*3/uL Baso # (Auto) (0.0-0.2) X10*3/uL Abs Immat Gran (auto) (0.00-0.03) X10*3/uL Absolute Neuts (auto) (2.0-8.3) x10*3/uL Absolute Nucleated RBC (0.0-0.012) X10*3/uL Nucleated RBC % (auto) (0.0-0.2) /100WBC Sodium (135-145) mmol/L Potassium (3.3-5.1) mmol/L Chloride (96-108) mmol/L Carbon Dioxide (22-29) mmol/L Anion Gap (12-20) BUN (9-16) mg/dL Creatinine (0.5-1.4) mg/dL Estim Creat Clear Calc Estimated GFR Random Glucose (60-115) mg/dL Calcium (8.4-10.2) mg/dL Magnesium (1.6-2.6) mg/dL Troponin I High Sens < 3.5 (<3.5-17.0) ng/L TSH (0.32-4.0) uIU/mL Urine Color Urine Appearance Urine pH (5.0-9.0) Ur Specific [place] (1.005-1.025) Urine Protein (Neg-Trace) mg/dL Urine Glucose (UA) (Negative) mg/dL Urine Ketones (Negative) mg/dL Urine Blood (Negative) Urine Nitrite (Negative) Ur Leukocyte Esterase (Negative) Urine RBC (0-2) /HPF Urine WBC (0-5) /HPF Ur Squamous Epith Cells (0-2) /HPF Urine Bacteria (None Seen) Hyaline Casts (0-2) /LPF Urine Test NEGATIVE (NEGATIVE) Discharge Plan Discharge Clinical Impression: Sinus bradycardia by electrocardiogram, Abdominal pain, Chest pain Patient Disposition: Home, Self-Care Instructions: Chest Pain (DC), Abdominal Pain (ED), Nondiabetic Hyperglycemia (ED) Prescriptions: No Action loperamide [Imodium A-D] 2 mg capsule 2 mg PO Q4H PRN (Reason: loose stool) Qty: 20 0RF Rx Instructions: administer after each loose stool until symptoms controlled; do not exceed 8 mg per 24 hrs ondansetron HCl [Zofran] 4 mg tablet 4 mg PO Q8H PRN (Reason: nausea and vomiting) Qty: 7 0RF famotidine 20 mg tablet 20 mg PO DAILY sumatriptan succinate 100 mg tablet 100 mg PO ONCE duloxetine 60 mg capsule,delayed release(DR/EC) 60 mg PO DAILY venlafaxine 75 mg capsule,extended release 24hr 75 mg PO QAM gabapentin 100 mg capsule 100 mg PO TID Referrals: Laura Mejia MD [Primary Care Provider] - (Please follow-up closely with your doctor. If sugar was elevated today. It could be your having diabetes. Please monitor your diet carefully. No simple sugar. Small portion but more frequent meals. )
[2022-07-19 23:07] LABS: TSH reflex Free T4 1.12 uIU/mL (0.32-4.0)
[2022-07-19 23:25] VITALS: BP 127/58; PULSE 39; RESP 15; TEMP 36.7; O2SAT 99
[2022-07-19 23:25] LABS: Troponin-I High Sensitivity < 3.5 ng/L (<3.5-17.0)
--- NOTE | 2022-07-19 23:36 | PC.NURSE ---
Multiple RNs made attempts to obtain IV access with success. One IV was placed and an attempt to infuse IV contrast into vein failed and resulted in a blown vein. Provider made aware. Plan to perform CT without contrast and deliver PO fluids.
== END 2022-07-20 01:53 | disposition home or self-care (01) ==
PROVIDERS: Emergency Provider Emergency Medicine Emergency Medical Services; PCP Internal Medicine
DX: R00.1 Bradycardia, unspecified (principal); R11.2 Nausea with vomiting, unspecified; R10.9 Unspecified abdominal pain; R07.89 Other chest pain; Z79.899 Other long term (current) drug therapy
CPT/HCPCS: 36415; 74176; 80048; 81001; 81025; 83735; 84443; 84484; 85025; 93005; 99283; 99284

== ENCOUNTER 2023-07-18 16:48 | Emergency (ER) | payer OTHER, SELFPAY ==
[2023-07-18 16:54] VITALS: BP 111/68; BP 115/75; PULSE 34; PULSE 49; RESP 12; TEMP 36.6; O2SAT 98; O2SAT 99; BMI 29.2
--- NOTE | 2023-07-18 16:54 | ECG_ITS ---
Test Reason : CX PAIN Blood Pressure : / mmHG Vent. Rate : 050 BPM Atrial Rate : 050 BPM P-R Int : 170 ms QRS Dur : 068 ms QT Int : 438 ms P-R-T Axes : 038 014 029 degrees QTc Int : 399 ms Sinus bradycardia with sinus arrhythmia Otherwise normal ECG When compared with ECG of 19-JUL-2022 11:51, No significant change was found Referred By: Vianey Camacho Electronically Signed By:SHANE SCHWARZ
--- NOTE | 2023-07-18 16:55 | ED_ITS ---
HPI - Chest Pain General Chief Complaint: Chest Pain Stated Complaint: CHEST PAIN X 3 DAYS NAUSEA VOMTING Time Seen by Provider: 07/18/23 16:48 Source: patient Mode of arrival: EMS History of Present Illness HPI narrative: 42-year-old female who presents with chest tightness and pain for 3 days and states that it radiates down both upper extremities. Patient states that she has had several episodes of diarrhea over the past couple of days is unsure if it might be food poisoning. She otherwise denies urinary symptoms and according to the triage note reportedly passed out with positive head strike . Patient also takes medications for underlying psychiatric problems but states that she has not been taking them regularly. She is an everyday smoker. Related Data Home Medications Medication Instructions Recorded Confirmed duloxetine 60 mg capsule,delayed 60 mg PO DAILY 11/09/20 12/14/21 release famotidine 20 mg tablet 20 mg PO DAILY 11/09/20 12/14/21 sumatriptan succinate 100 mg tablet 100 mg PO ONCE 11/09/20 12/14/21 venlafaxine 75 mg capsule,extended 75 mg PO QAM 11/09/20 12/14/21 release 24 hr gabapentin 100 mg capsule 100 mg PO TID 12/20/20 12/14/21 Previous Rx's Medication Instructions Recorded loperamide 2 mg capsule (Imodium 2 mg PO Q4H PRN loose stool #20 03/13/21 A-D) caps ondansetron HCl 4 mg tablet 4 mg PO Q8H PRN nausea and 03/13/21 (Zofran) vomiting #7 tabs Allergies Allergy/AdvReac Type Severity Reaction Status Date / Time No Known Allergies Allergy Verified 12/14/21 10:23 [No Known Allergies*] Review of Systems 2 Review of Systems: Pertinent positives and negatives as stated in HPI PMFSH Past Medical History Source: nursing notes reviewed Medical History Gastroenteritis Depression Insomnia Short-term memory loss Migraine Fibromyalgia Anxiety Bipolar 1 disorder, depressed Sinus bradycardia by electrocardiogram Surgical History H/O: hysterectomy Family History Family History Father No problems noted. Mother No problems noted. Social History Social History Patient Tobacco Use Status: Current everyday Tobacco user Cigarettes Per Day: 5 Advance Directives: No Advance Directives Information Provided: No Physical Exam 2 Vital Signs: Vital Signs: Last Vital Signs Temp 97.9 F 07/18/23 16:54 Pulse 56 07/18/23 17:45 Resp 12 07/18/23 16:57 BP 100/70 07/18/23 17:45 Pulse Ox 99 07/18/23 16:57 O2 Del Method Room Air 07/18/23 16:57 BMI result Body Mass Index 29.2 VITAL SIGNS: Reviewed. GENERAL: Well developed, well nourished, in no acute distress. HEAD: Normocephalic/atraumatic EYES: PERRLA, EOMI EARS: Ext canals without abnormality NOSE: Nares patent bilateral OROPHARYNX: no oral lesions noted, posterior pharynx clear NECK: Supple, no adenopathy LUNGS: Normal breath sounds. No adventitious sounds or accessory muscle use. SpO2<99> CARDIOVASCULAR: Regular rate and rhythm without noted murmurs ABDOMEN: Soft, non-tender, non-distended with bowel sounds. MUSCULOSKELETAL: No tenderness, deformities, or effusions noted on gross inspection. EXTREMITIES: No cyanosis, clubbing or edema. SKIN: Inspection of the skin reveals no rashes NEUROLOGIC: Alert and oriented x 4. Strength and sensation to light touch were grossly intact x 4. Medical Decision Making Medical Decision Making MDM Narrative: 42-year-old female with history and clinical presentation, DDX: Anxiety, gastroenteritis, gastritis, pancreatitis, viral illness, lower clinical suspicion for pneumonia or ACS. I reviewed all investigations and the hematologic indices are negative for evidence to support an infectious process as there is no leukocytosis or left shift, patient is afebrile, there is no anemia or thrombocytopenia. Chemistry indices do not demonstrate any MIKEY, there is no electrolyte or liver enzyme abnormalities and a troponin is undetectable with an EKG that does not demonstrate ischemic changes. Urinalysis is negative for evidence to suggest UTI or hematuria. COVID-19 testing is negative. Suspect that patient may have a component of anxiety in gastroenteritis and likely a component of acid reflux. She is otherwise discharged with instructions to start [id number] acid control medication. Differential Diagnosis Differential Diagnoses: The differential diagnosis associated with the presentation includes Please see the discussion above Admission/Observation Consideration of admission/observation: Escalation of care including admission/observation considered Please see the discussion above Lab Data MDM Lab Attestation statement: I reviewed the patient's lab results. Please see the discussion above 07/18/23 17:10 07/18/23 17:10 Labs: Lab Results 07/18/23 07/18/23 07/18/23 Range/Units 17:10 17:27 18:00 WBC 9.2 (4.8-10.8) X10*3/uL RBC 4.87 (4.20-5.50) X10*6/uL Hgb 15.0 (12.0-16.0) g/dl Hct 42.7 (37.0-47.0) % MCV 87.7 (80.0-98.0) fL MCH 30.8 (27.0-33.0) pg MCHC 35.1 H (31.0-35.0) g/dl RDW 12.7 (11.0-16.0) % Plt Count 202 (160-400) X10*3/uL MPV 10.6 (9.4-12.3) fL Immature Gran % (Auto) 0.3 (0.0-0.4) % Neut % (Auto) 62.8 (45-73) % Lymph % (Auto) 28.6 (20-40) % [place] % (Auto) 5.6 (2-11) % Eos % (Auto) 2.2 (0-4) % Baso % (Auto) 0.5 (0-2) % Lymph # (Auto) 2.6 (1.2-4.9) X10*3/uL [place] # (Auto) 0.5 (0.1-1.2) X10*3/uL Eos # (Auto) 0.2 (0.0-0.4) X10*3/uL Baso # (Auto) 0.1 (0.0-0.2) X10*3/uL Abs Immat Gran (auto) 0.03 (0.00-0.03) X10*3/uL Absolute Neuts (auto) 5.8 (2.0-8.3) x10*3/uL Absolute Nucleated RBC 0.000 (0.0-0.012) X10*3/uL Nucleated RBC % (auto) 0.0 (0.0-0.2) /100WBC Sodium 140 (135-145) mmol/L Potassium 4.4 (3.3-5.1) mmol/L Chloride 112 H (96-108) mmol/L Carbon Dioxide 21 L (22-29) mmol/L Anion Gap 11 L (12-20) BUN 6 L (9-16) mg/dL Creatinine 0.70 (0.5-1.4) mg/dL Estim Creat Clear Calc 113.0 Estimated GFR > 60 Random Glucose 71 (60-115) mg/dL Calcium 9.2 (8.4-10.2) mg/dL Total Bilirubin 0.7 (0.0-1.0) mg/dL AST 27 (5-31) U/L ALT 10 (0-31) U/L Alkaline Phosphatase 59 (39-117) U/L Troponin I High Sens < 2.7 (<3.5-17.0) ng/L Total Protein 7.4 (6.5-8.0) g/dL Albumin 3.9 (3.5-5.0) g/dL Lipase 12 (8-78) U/L Urine Color Dark Yellow Urine Appearance Clear Urine pH 5.5 (5.0-9.0) Ur Specific [place] 1.020 (1.005-1.025) Urine Protein Trace (Neg-Trace) mg/dL Urine Glucose (UA) Negative (Negative) mg/dL Urine Ketones Trace (Negative) mg/dL Urine Blood Negative (Negative) Urine Nitrite Negative (Negative) Ur Leukocyte Esterase Trace H (Negative) Urine RBC 0-2 (0-2) /HPF Urine WBC 0-5 (0-5) /HPF Ur Squamous Epith Cells 3-5 (0-2) /HPF Urine Bacteria None Seen (None Seen) Hyaline Casts 0-2 (0-2) /LPF COVID-19 (WILFREDO) Negative (Negative) COVID-19 Clin Com See Note Independent Interpretation I performed an independent interpretation of an: EKG Interpretation: Sinus bradycardia, HR -50, PA/QRS/QTC is within normal limits, QT is prolonged at 438. External Record Review External record reviewed: Outpatient record, Prior outpatient labs and Prior outpatient radiology Discharge Plan Discharge Clinical Impression: Atypical chest pain, Acid reflux, Gastroenteritis Patient Disposition: Home, Self-Care Instructions: Indigestion (ED), Noncardiac Chest Pain (ED), Gastroenteritis (ED), Nutrition Tips for Relief of Diarrhea (ED) Additional Instructions: 1. Please resume all home medications as prescribed. 2. I recommend [id number]-[id number] medication for acid reflux 3. Follow-up with your primary care doctor. Return to the ER for any worsening symptoms. Prescriptions: No Action loperamide [Imodium A-D] 2 mg capsule 2 mg PO Q4H PRN (Reason: loose stool) Qty: 20 0RF Rx Instructions: administer after each loose stool until symptoms controlled; do not exceed 8 mg per 24 hrs ondansetron HCl [Zofran] 4 mg tablet 4 mg PO Q8H PRN (Reason: nausea and vomiting) Qty: 7 0RF famotidine 20 mg tablet 20 mg PO DAILY sumatriptan succinate 100 mg tablet 100 mg PO ONCE duloxetine 60 mg capsule,delayed release(DR/EC) 60 mg PO DAILY venlafaxine 75 mg capsule,extended release 24hr 75 mg PO QAM gabapentin 100 mg capsule 100 mg PO TID
[2023-07-18 16:57] VITALS: BP 112/76; PULSE 62; PULSE 64; RESP 12; O2SAT 99
[2023-07-18 17:13] LABS: MANUAL DIFF FLAG NO
[2023-07-18 17:16] LABS: Basophils Absolute Auto 0.1 X10*3/uL (0.0-0.2); Basophils Percent Auto 0.5 % (0-2); Eosinophils Absolute Auto 0.2 X10*3/uL (0.0-0.4); Eosinophils Percent Auto 2.2 % (0-4); Hematocrit 42.7 % (37.0-47.0); Imm Gran Abs Auto 0.03 X10*3/uL (0.00-0.03); Imm Gran Pct Auto 0.3 % (0.0-0.4); Lymphocytes Absolute Auto 2.6 X10*3/uL (1.2-4.9); Lymphocytes Percent Auto 28.6 % (20-40); Mean Corpuscular HGB Conc 35.1 g/dl (31.0-35.0); Mean Corpuscular Hemoglobin 30.8 pg (27.0-33.0); Mean Corpuscular Volume 87.7 fL (80.0-98.0); Mean Platelet Volume 10.6 fL (9.4-12.3); Monocytes Absolute Auto 0.5 X10*3/uL (0.1-1.2); Monocytes Percent Auto 5.6 % (2-11); Neutrophils Absolute Auto 5.8 x10*3/uL (2.0-8.3); Neutrophils Percent Auto 62.8 % (45-73); Platelet Count 202 X10*3/uL (160-400); Red Blood Count 4.87 X10*6/uL (4.20-5.50); Red Cell Distribution Width 12.7 % (11.0-16.0); White Blood Count 9.2 X10*3/uL (4.8-10.8)
--- OUTSIDE RECORDS SUMMARY | 2023-07-18 17:24 | XMS_ITS | Continuity of Care Document ---
Author Name Unknown Organization [facility] ter Address [address] [place] [address]- Care Team Providers Care Industrial Safety Engineer Name Role Phone Laura Mejia MD Primary Care Physician [phone] Encounter [facility] [place] Date(s): 08/03/20 - 08/03/[address] [address]- [facility] Encounter Diagnosis Dizziness(Final) - 08/03/20 Dizziness(Final) - 08/03/20 Discharge Disposition: A-D/C Home Attending Physician: Akila Jose MD Admitting Physician: Akila Jose MD Referring Physician: Not on Staff, Referring MD Allergies, Adverse Reactions, Alerts Substance Reaction Severity Status Pollen Active Immunizations Given and Recorded Vaccine Date Status Refusal Reason tetanus/diphtheria/pertussis, acel(Tdap) 1 02/25/13 Given hepatitis B adult vaccine 2 02/25/13 Given Hepatitis A Adult Vaccine 3 02/25/13 Given pneumococcal 23-valent vaccine 07/09/10 Given Hepatitis B Vaccine (old term) 4 12/12/07 Given Influenza Inactive (IM) (oldterm) 5 12/12/07 Given 1Admin Note: VIS 11/27/2011 2Admin Note: VIS 05/21/07 given 3Admin Note: VIS 01/22/06 4Admin Note: VIS 05/04 #1 5Admin Note: vis 05/19/2007 Medications acetaminophen/butalbital/caffeine 300 mg-50 mg-40 mg oral capsule 1 capsule, By Mouth, Every 4 hours, PRN as needed, # 30 capsule, 0 Refills, Maintenance, 04/13/17 15:32:34, Capsule Start Date: 04/13/17 Status: Ordered KlonoPIN 1 mg oral tablet 1 tablet = 1 mg, By Mouth, 2 times a day, 0 Refills, Maintenance, 07/24/19 9:55:35 EDT, Tablet Start Date: 07/24/19 Status: Ordered Risperidone 0 Refills, Maintenance, 07/24/19 9:55:14 EDT Start Date: 07/24/19 Status: Ordered Trazodone By Mouth, 0 Refills, Maintenance, 07/24/19 9:55:02 EDT Start Date: 07/24/19 Status: Ordered Problem List Condition Effective Dates Status Health Status Inform ant Asthma(Confirmed) Active Bradycardia, sinus(Confirmed) 06/03/13 Active Chronic back pain(Confirmed) Active Fatigue - symptom(Confirmed) Active Fatty liver disease, nonalcoholic(Confirmed) Active GERD (gastroesophageal reflu x disease)(Confirmed) Active History of - hysterectomy(Confirmed) Active History of cholecystectomy(Confirmed) Active Insomnia(Confirmed) Active Migraine(Confirmed) Active Obesity (BMI 30-39.9)(Confirmed) Active Results Radiology Reports * Exam Date Time Procedure Performing Provider Status 08/03/20 3:49 PM Chest 2 Views Frontal and Lat Antonio Arredondo; Auth (Verified) Notes: (Chest 2 Views Frontal and Lat) Reason For Exam: CP;Other: RESULT: Chest 2 Views Frontal and Lat Chest 2 Views Frontal and Lat HX OF PRESENT ILLNESS: Patient reports dizziness, light headedness, nausea and poor appetite x1wk. adds she had a lot of diarrhea 2 days ago. denies fevers, +chills. denies vomiting. also adds sheis experiencing chest pain. REASON: CP CLINICAL QUESTION(S): Pneumonia COMPARISON: Chest x-ray 07/26/2019. FINDINGS: LINES AND TUBES: None. LUNGS AND PLEURA: Clear lungs. Normal pulmonary vascularity. No pleural effusion. No pneumothorax. HEART, MEDIASTINUM AND DANNY: Heart is normal in size. Normal mediastinal and hilar contour. BONES AND SOFT TISSUES: Mild degenerative changes of the spine. Status post cholecystectomy. IMPRESSION: Clear lungs. I have personally reviewed the images and I agree with this report. WSN: [id number] Ordering Physician: Esther Cam Dictated By: Gerardo Cat MD Dictated Date/Time: 08/03/20 3:57 pm Reviewed By: Estefania Mathews MD Signed By: Estefania Mathews MD Signed Date/Time: 08/03/20 4:02 pm Transcribed By: FARNAZ Transcribed Date/Time: 08/03/20 3:55 pm Vital Signs Most recent to oldest [Reference Range]: 1 Oxygen Saturation [94-100 %] 99 % (08/03/20 1:28 PM) Pulse Rate [55-90 bpm] 72 bpm (08/03/20 1:28 PM) Blood Pressure [90-138/55-84 mm Hg] 126/ 58mm Hg (08/03/20 1:28 PM) Respiratory Rate [16-30 br/min] 20 br/mi n (08/03/20 1:28 PM) Temperature [96.8-100.4 DegF] 98.4 DegF (08/03/20 1:28 PM) Mode of Delivery (Oxygen) Room air (08/03/20 1:28 PM) Temperature Route Oral (08/03/20 1:28 PM) Social History Social History Type Response Smoking Status Current every day aimee zamorano; Tobacco user in household: Yes entered on: 04/13/17 Sex
--- OUTSIDE RECORDS SUMMARY | 2023-07-18 17:24 | XMS_ITS | Continuity of Care Document ---
Author Name Unknown Organization [facility] ter Address [address] [place] [id number]- Care Team Providers Care Weaving Inspector Name Role Phone Laura Mejia MD Primary Care Physician [phone] [place] [facility] [place]/13[place] - 12/15/[address] [address]- Encounter Diagnosis Chest pain(Final) - 12/13/20 Discharge Disposition: A-D/C Home Attending Physician: John Manning Sr, MD Admitting Physician: Kashif Michel MD Referring Physician: Not on Staff, Referring [...] 15:32:34, Capsule Start Date: 04/13/17 Status: Ordered duloxetine 60 mg oral enteric coated capsule TAKE 1 CAPSULE BY MOUTH DAILY Start Date: 12/14/20 Status: Ordered gabapentin 100 mg oral capsule 100 mg, Capsule, By Mouth, 12/15/20 9:00:00 EST Start Date: 12/15/20 Stop Date: 12/15/20 Status: Completed gabapentin 100 mg oral capsule 100 mg, 1, capsule, By Mouth, 3 times a day, # 60 capsule, Refills 0, Tot. Refills 0, Maintenance, 12/13/20 23:22:00 EST, Route to Pharmacy Electronically, [facility], Partial fill upon patient request if the prescription is for a... Start Date: 12/13/20 Status: Ordered KlonoPIN 1 mg oral tablet 1 tablet = 1 mg, By Mouth, 2 times a day, 0 Refills, Maintenance, 07/24/19 9:55:35 EDT, Tablet Start Date: 07/24/19 Status: Ordered Trazodone By [...] Exam Date Time Procedure Performing Provider Status 12/13/20 5:24 PM Chest 2 Views Frontal and Lat Marilee Juan; Adele (Verified) Notes: (Chest 2 Views Frontal and Lat) Reason For Exam: Chest Pain;Other: RESULT: Chest 2 Views Frontal and Lat Chest 2 Views Frontal and Lat Hx of Present Illness: Pt reporting pain in central chest up into L side of neck and into L side ofhead. also reporting some cramping in L hand. reporting poor appetite, denies nausea and abd pain; Reason: Other:; Chest Pain; Clinical Question(s): Other: COMPARISON: 08/03/2020 chest x-ray. FINDINGS: LINES AND TUBES: None. LUNGS AND PLEURA: Clear lungs. Normal pulmonary vascularity. No pleural effusion. No pneumothorax. HEART, MEDIASTINUM AND DANNY: Heart is normal in size. Normal upper mediastinal and hilar contour. BONES AND SOFT TISSUES: No acute abnormality. IMPRESSION: No acute cardiopulmonary pathology. WSN: [id number] Ordering Physician: Silvia Kay Dictated By: Peter Eli MD Dictated Date/Time: 12/13/20 5:39 pm Reviewed By: Peter Eli MD Signed By: Peter Eli MD Signed Date/Time: 12/13/20 5:39 pm Transcribed By: FARNAZ Transcribed Date/Time: 12/13/20 5:38 pm Vital Signs Most recent to oldest [Reference Range]: 1 2 3 Height 153 cm (12/15/20 10:54 AM) 153 cm (12/15/20 7:45 AM) 153 cm (12/15/20 5:12 AM) Weight 79.3 kg (12/14/20 5:07 PM) 73 kg (12/14/20 11:47 AM) 73 kg (12/14/20 8:21 AM) Oxygen Saturation [94-100 %] 96 % (12/15/20 10:54 AM) 95 % (12/15/20 7:45 AM) 97 % (12/15/20 5:12 AM) Pulse Rate [55-90 bpm] 58 bpm (12/15/20 10:54 AM) 50 bpm *L* (12/15/20 7:45 AM) 78 bpm (12/15/20 5:12 AM) Body Mass Index [18.5-24.99] 33.88 *>HHI* (12/14/20 5:07 PM) 31.18 *>HHI* (12/14/20 11:47 AM) 31.18 *>HHI* (12/14/20 8:21 AM) Blood Pressure [90-138/55-84 mm Hg] 103/61mm Hg (12/15/20 10:54 AM) 109/65mm Hg (12/15/20 7:45 AM) 97/54mm Hg (12/15/20 5:12 AM) Respiratory Rate [16-30 br/min] 18 br/min (12/15/20 12:24 PM) 18 br/min (12/15/20 10:54 AM) 18 br/min (12/15/20 9:29 AM) Temperature [96.8-100.4 DegF] 98.3 DegF (12/15/20 10:54 AM) 98.2 DegF (12/15/20 7:45 AM) 98.1 DegF (12/15/20 5:12 AM) Mode of Delivery (Oxygen) Room air (12/15/20 10:54 AM) Room air (12/15/20 7:45 AM) Room air (12/15/20 5:12 AM) Blood pressure sites Arm, left (12/15/20 10:54 AM) Arm, left (12/15/20 7:45 AM) Arm, right (12/15/20 5:12 AM) Temperature Route Oral (12/15/20 10:54 AM) Oral (12/15/20 7:45 AM) Oral (12/15/20 5:12 AM) Dry Weight 79.3 kg (12/14/20 5:07 PM) 73 kg (12/14/20 11:47 AM) 73 kg (12/14/20 8:21 AM) Weight Obtained Via Standing scale (12/13/20 4:52 PM) Dry Weight Obtained Via Standing scale (12/13/20 4:52 PM) Social History Social History Type Response Smoking Status Current every day aimee zamorano; Tobacco user in household: Yes entered on: 04/13/17 Sex
--- OUTSIDE RECORDS SUMMARY | 2023-07-18 17:24 | XMS_ITS | Continuity of Care Document ---
Author Name Unknown Organization [facility] Address [address] [place] [address]- Care Team Providers Care Bottle House Quality Control Technician Name Role Phone Laura Mejia MD Primary Care Physician [phone] Encounter [facility] Date(s): 05/23/22 - 05/23/[address] [address]- Discharge Disposition: A-D/C Home Attending Physician: Ramesh King MD Admitting Physician: Ramesh King MD Referring Physician: Not on Staff, Referring [...] 12/13/20 23:22:00 EST, Route to Pharmacy Electronically, [facility], Partial fill upon patient request if the prescription is for a... Start Date: 12/13/20 Status: Ordered prochlorperazine 10 mg oral tablet 1 tablet = 10 mg, By Mouth, 3 times a day, for 7 days, # 21 tablet, 0 Refills, Acute 05/30/22 15:25:00 EDT, 05/23/22 15:25:00 EDT, [id number], Partial fill upon patient request if the prescription is for a schedule II opioid d... Start Date: 05/23/22 Stop Date: 05/30/22 Status: Ordered Problem List Condition Effective Dates Status Health Status Inform ant Asthma(Confirmed) Active Bradycardia, sinus(Confirmed) 06/03/13 Active Chronic back pain(Confirmed) Active Fatigue - symptom(Confirmed) Active Fatty liver disease, nonalcoholic(Confirmed) Active GERD (gastroesophageal reflu x disease)(Confirmed) Active History of - hysterectomy(Confirmed) Active History of cholecystectomy(Confirmed) Active Insomnia(Confirmed) Active Migraine(Confirmed) Active Obese class I(Confirmed) Active Obesity (BMI 30-39.9)(Confirmed) Active Results Radiology Reports * Exam Date Time Procedure Performing Provider Status 05/23/22 1:34 PM Chest Portable Sandra Weston; Adele (Ve rified) Notes: (Chest Portable) Reason For Exam: Shortness of Breath RESULT: Chest Portable Chest Portable Hx of Present Illness: Pt reports weakness and headache for 4 days. Repeorts dizziness and lightheadedness and poor PO intake. Pt has tried tylenol and motrin with no relief.; Reason: Shortness of Breath; Clinical Question(s): CHF COMPARISON: Multiple priors, most recently 12/13/2020. FINDINGS: LINES AND TUBES: None. LUNGS AND PLEURA: Clear lungs. Normal pulmonary vascularity. No large pleural effusion. No pneumothorax. HEART, MEDIASTINUM AND DANNY: Heart is normal in size. Normal upper mediastinal and hilar contour. BONES AND SOFT TISSUES: No acute abnormality. IMPRESSION: No acute abnormality. WSN: [id number] Ordering Physician: Ramesh King Dictated By: Syed Ogden MD Dictated Date/Time: 05/23/22 1:38 pm Reviewed By: Syed Ogden MD Signed By: Syed Ogden MD Signed Date/Time: 05/23/22 1:38 pm Transcribed By: FARNAZ Transcribed Date/Time: 05/23/22 1:36 pm Vital Signs Most recent to oldest [Reference Range]: 1 2 3 Height 153 cm (05/23/22 3:53 PM) 153 cm (05/23/22 11:29 AM) 153 cm (05/23/22 11:28 AM) Weight 77.0 kg (05/23/22 3:53 PM) 77.0 kg (05/23/22 11:29 AM) 77.0 kg (05/23/22 11:28 AM) Oxygen Saturation [94-100 %] 99 % (05/23/22 3:53 PM) 99 % (05/23/22 1:48 PM) 98 % (05/23/22 11:28 AM) Pulse Rate [55-90 bpm] 55 bpm (05/23/22 3:53 PM) 51 bpm *L* (05/23/22 1:48 PM) 68 bpm (05/23/22 11:28 AM) Body Mass Index [18.5-24.99] 32.89 *>HHI* (05/23/22 3:53 PM) 32.89 *>HHI* (05/23/22 11:28 AM) Blood Pressure [90-138/55-84 mm Hg] 91/60mm Hg (05/23/22 3:53 PM) 102/67mm Hg (05/23/22 1:48 PM) 108/71mm Hg (05/23/22 11:28 AM) Respiratory Rate [16-30 br/min] 20 br/min (05/23/22 3:53 PM) 18 br/min (05/23/22 1:48 PM) 17 br/min (05/23/22 11:28 AM) Temperature [96.8-100.4 DegF] 98.2 DegF (05/23/22 1:48 PM) 98.8 DegF (05/23/22 11:28 AM) Mode of Delivery (Oxygen) Room air (05/23/22 3:53 PM) Room air (05/23/22 1:48 PM) Room air (05/23/22 11:28 AM) Blood pressure sites Arm, left (05/23/22 1:48 PM) Arm, right (05/23/22 11:28 AM) Temperature Route Oral (05/23/22 1:48 PM) Oral (05/23/22 11:28 AM) Dry Weight 77.0 kg (05/23/22 3:53 PM) 77.0 kg (05/23/22 11:29 AM) 77.0 kg (05/23/22 11:28 AM) Weight Obtained Via Standing scale (05/23/22 11:28 AM) Dry Weight Obtained Via Standing scale (05/23/22 11:28 AM) Social History Social History Type Response Smoking Status Current every day aimee zamorano; Tobacco user in household: Yes entered on: 04/13/17 Sex
--- OUTSIDE RECORDS SUMMARY | 2023-07-18 17:24 | XMS_ITS | Continuity of Care Document ---
Author Name Unknown Organization [facility] ter Address [address] [place] [id number]- Care Team Providers Care Media Consultant Name Role Phone Laura Mejia MD Primary Care Physician [phone] Encounter [facility] [place] Date(s): 08/18/21 - 08/18/[address] [address]- Discharge Disposition: A-D/C Walkout Attending Physician: Not on Staff, Attending MD Admitting Physician: Not on Staff, Admitting MD Referring Physician: Not on Staff, Referring [...] 12/13/20 23:22:00 EST, Route to Pharmacy Electronically, [facility], Partial fill upon patient request if the prescription is for a... Start Date: 12/13/20 Status: Ordered Problem List Condition Effective Dates Status Health Status Inform ant Asthma(Confirmed) Active Bradycardia, sinus(Confirmed) 06/03/13 Active Chronic back pain(Confirmed) Active Fatigue - symptom(Confirmed) Active Fatty liver disease, nonalcoholic(Confirmed) Active GERD (gastroesophageal reflu x disease)(Confirmed) Active History of - hysterectomy(Confirmed) Active History of cholecystectomy(Confirmed) Active Insomnia(Confirmed) Active Migraine(Confirmed) Active Obesity (BMI 30-39.9)(Confirmed) Active Vital Signs Most recent to oldest [Reference Range]: 1 2 Oxygen Saturation [94-100 %] 100 % (08/18/21 5:06 PM) 100 % (08/18/21 3:32 PM) Pulse Rate [55-90 bpm] 50 bpm *L* (08/18/21 5:06 PM) 52 bpm *L* (08/18/21 3:32 PM) Blood Pressure [90-138/55-84 mm Hg] 120/ 79mm Hg (08/18/21 5:06 PM) 101/76mm Hg (08/18/21 3:32 PM) Respiratory Rate [16-30 br/min] 16 br/mi n (08/18/21 5:06 PM) 18 br/min (08/18/21 3:32 PM) Temperature [96.8-100.4 DegF] 98.7 DegF (08/18/21 3:32 PM) Mode of Delivery (Oxygen) Room air (08/18/21 5:06 PM) Room air (08/18/21 3:32 PM) Blood pressure sites Arm, right (08/18/21 5:06 PM) Temperature Route Oral (08/18/21 3:32 PM) Social History Social History Type Response Smoking Status Current every day aimee zamorano; Tobacco user in household: Yes entered on: 04/13/17 Sex
[2023-07-18 17:36] LABS: Alanine Aminotransferase 10 U/L (0-31); Albumin Level 3.9 g/dL (3.5-5.0); Alkaline Phosphatase 59 U/L (39-117); Anion Gap 11 (12-20); Aspartate Amino Transferase 27 U/L (5-31); Bilirubin Total 0.7 mg/dL (0.0-1.0); Blood Urea Nitrogen 6 mg/dL (9-16); Calcium 9.2 mg/dL (8.4-10.2); Carbon Dioxide 21 mmol/L (22-29); Chloride 112 mmol/L (96-108); Estimated Glomerular Filt Rate > 60; Glucose Random 71 mg/dL (60-115); Lipase 12 U/L (8-78); Potassium 4.4 mmol/L (3.3-5.1); Sodium 140 mmol/L (135-145); Total Protein 7.4 g/dL (6.5-8.0)
[2023-07-18 17:42] VITALS: BP 101/59; PULSE 44
[2023-07-18 17:44] VITALS: BP 111/68; PULSE 63
[2023-07-18 17:45] VITALS: BP 100/70; PULSE 56
[2023-07-18 17:45] LABS: Troponin-I High Sensitivity < 2.7 ng/L (<3.5-17.0)
[2023-07-18 17:48] LABS: COVID-19 Test Negative (Negative); IDNOW Serial# BCCEAD1C
--- NOTE | 2023-07-18 17:48 | PC.NURSE ---
orthostatic vitals complete - pt dizzy throughout. reports intermittent bradycardia at baseline.
[2023-07-18 18:13] LABS: Appearance Urine Clear; Color Urine Dark Yellow; Glucose Urine UA Negative (Negative); Leukocyte Esterase Urine Trace (Negative); Nitrite Urine Negative (Negative); PH 5.5 (5.0-9.0); UMIC TRIGGER UACC YES; Urine Blood Negative (Negative); Urine Ketones Trace mg/dL (Negative); Urine Protein Trace mg/dL (Neg-Trace)
[2023-07-18 18:20] LABS: Bacteria Urine None Seen (None Seen); Hyaline Casts Urine 0-2 /LPF (0-2); RBC Urine 0-2 /HPF (0-2); WBC Urine 0-5 /HPF (0-5)
== END 2023-07-18 21:06 | disposition home or self-care (01) ==
PROVIDERS: Emergency Provider Student in an Organized Health Care Education/Training Program
DX: R07.89 Other chest pain (principal); K52.9 Noninfective gastroenteritis and colitis, unspecified; K21.9 Gastro-esophageal reflux disease without esophagitis; Z20.822 Contact with and (suspected) exposure to COVID-19; F17.210 Nicotine dependence, cigarettes, uncomplicated; Z79.899 Other long term (current) drug therapy
CPT/HCPCS: 36415; 80053; 81001; 83690; 84484; 85025; 87635; 93005; 99283; 99285

== ENCOUNTER 2024-06-15 13:00 | Emergency (ER) | payer OTHER, SELFPAY ==
[2024-06-15 13:12] VITALS: BP 149/70; PULSE 59; RESP 18; TEMP 36.6; O2SAT 99; BMI 28.2
--- NOTE | 2024-06-15 13:14 | ED.GENADULT ---
HPI - General Adult General Chief complaint: Abdominal Pain Stated complaint: abd pain Source: patient Mode of arrival: ambulatory Limitations: no limitations History of Present Illness ED Provider: Shreya Smith PA-C HPI narrative: Patient is a 43 year old assigned female at with a history of cholecystectomy presenting to the emergency department today with fever, abdominal pain, diarrhea, and nausea. Patient states that over the last 4 days she has had abdominal pain, fever, diarrhea, and nausea. Patient denies any dizziness, lightheadedness, vomiting, chills, blurry vision, double vision, loss of vision, chest pain, difficulty breathing, shortness of breath, back pain, night sweats, pain with urination, increased urinary frequency, increased urinary urgency, blood in her urine or stool, syncope or a near syncopal episode, recent trauma or falls, bowel incontinence, bladder incontinence, or any other complaints at this time. Onset (ago): day(s) (4) Location: abdomen Relieving factors: none Exacerbating factors: none Associated symptoms: fever/chills and nausea/vomiting Treatments prior to arrival: none Related Data Home Medications ?Medication ?Instructions ?Recorded ?Confirmed duloxetine 60 mg capsule,delayed 60 mg PO DAILY 11/09/20 12/14/21 release famotidine 20 mg tablet 20 mg PO DAILY 11/09/20 12/14/21 sumatriptan succinate 100 mg tablet 100 mg PO ONCE 11/09/20 12/14/21 venlafaxine 75 mg capsule,extended 75 mg PO QAM 11/09/20 12/14/21 release 24 hr gabapentin 100 mg capsule 100 mg PO TID 12/20/20 12/14/21 Previous Rx's ?Medication ?Instructions ?Recorded loperamide 2 mg capsule (Imodium 2 mg PO Q4H PRN loose stool #20 03/13/21 A-D) caps ondansetron HCl 4 mg tablet 4 mg PO Q8H PRN nausea and 03/13/21 (Zofran) vomiting #7 tabs Allergies Allergy/AdvReac Type Severity Reaction Status Date / Time No Known Allergies Allergy Verified 06/15/24 13:17 [No Known Allergies*] Review of Systems Constitutional: Constitutional: Reports no additional constitutional complaints, Denies chills, Reports fever(s) and Denies night sweats Eyes: Eyes: Reports no additional eye complaints, Denies blurry vision, Denies change in vision, Denies diplopia, Denies eye discharge, Denies loss of vision and Denies eye pain ENT: Denies dizziness Cardiovascular: Cardiovascular: Reports no additional cardiovascular complaints, Denies chest pain, Denies lightheadedness, Denies Loss of Consciousness and Denies dyspnea Respiratory: Respiratory: Reports no additional respiratory complaints and Denies dyspnea Gastrointestinal: Gastrointestinal: Reports no additional gastrointestinal complaints, Reports abdominal pain, Denies melena, Denies hematochezia, Denies change in bowel habits, Denies change in stool character and Reports nausea Genitourinary: Genitourinary: Denies hematuria, Denies urinary frequency, Denies dysuria, Denies urinary incontinence, Denies urinary hesitancy and Denies urinary urgency Musculoskeletal: Musculoskeletal: Reports no additional musculoskeletal complaints, Denies numbness and Denies tingling Neurologic: Denies dizziness, Denies loss of vision, Denies numbness and Denies tingling Psychiatric: Psychiatric: Reports no additional psychiatric complaints Endocrine: Endocrine: Reports no additional endocrine complaints Hematologic/Lymphatic: Hematologic/Lymphatic: Reports no additional hematologic/lymphatic complaints Allergic/Immunologic: Allergic/Immunologic: Reports no additional allergic/immunologic complaints PMFSH Past Medical History Attestation statement: The following information was validated with the patient. Source: old records reviewed and nursing notes reviewed Medical History Gastroenteritis Depression Insomnia Short-term memory loss Migraine Fibromyalgia Anxiety Bipolar 1 disorder, depressed Sinus bradycardia by electrocardiogram Surgical History H/O: hysterectomy Family History Family History Father No problems noted. Mother No problems noted. Social History Social History Patient Tobacco Use Status: Current everyday Tobacco user Cigarettes Per Day: 5 Advance Directives: No Advance Directives Information Provided: Yes Do you have a plan to hurt others: No Plan Physical Exam ED Vital Signs: BMI result Body Mass Index 28.2 Const General: cooperative, no acute distress, alert and awake Nutritional Appearance: well nourished Orientation/consciousness: patient oriented x3 Limitations: no limitations HENMT Head: Yes normal to inspection and Yes atraumatic Ears: hearing grossly normal bilaterally and external ears normal General nose exam: Normal external nose present, no nasal discharge noted and no epistaxis Face and sinus: Yes normal facial exam, No abrasion and No laceration Mouth: Normal oral and palatal mucosa present, no drooling and no muffled voice Eyes General: appearance normal, both eyes and all related structures Periorbital: periorbital findings normal Eyelids: Yes eyelids normal Conjunctivae: conjunctivae normal Pupils: Equal, round and reactive pupils present EOM: EOMs intact bilaterally Neck Neck: Yes normal visual inspection, Yes full ROM and Yes no lymphadenopathy Chest Chest palpation & inspection: normal inspection of the chest Resp Effort & Inspection: normal respiratory effort and able to speak in complete sentences GI Inspection: Yes normal to inspection Neuro General: patient oriented x3 and moves all extremities Cranial nerves: Yes Equal, round and reactive pupils present Cognition (Neuro): normal cognition Extrem General: Yes normal to inspection, Yes full ROM and Yes capillary refill normal Psych Appearance: grossly normal Mental Status: mental status grossly normal Affect: normal affect Attitude: cooperative Thought process: Normal thought process present Thought content: Normal thought content present Insight: Good insight present (Psych) Course Course Course Narrative: RME performed by Shreya Smith PA-C. Patient is a 43 year old assigned female at presenting to the emergency department with abdominal pain, fever, feeling generally unwell. Detailed physical exam and review of systems are deferred to the partnership development manager. Labs and swabs ordered. Patient placed back in the waiting room pending room availability and results. Medical Decision Making Medical Decision Making MDM Narrative: Patient is a 43 year old assigned female at with a history of cholecystectomy presenting to the emergency department today with fever, abdominal pain, and nausea. Patient's limited physical exam performed in triage was unremarkable. Patient's blood work was unremarkable. Patient left the department without completing treatment. Patient left the department before myself or any of the other emergency department clinicians could explain to or review with the patient; physical exam findings, test results, need or lack there of for additional testing, need or lack there of for a procedure to be performed, need or lack there of for hospital admission / transfer, need or lack there of for prescription medication, treatment options, or a treatment plan. Differential Diagnosis Differential Diagnoses: The differential diagnosis associated with the presentation includes Abdominal pain Nausea Vomiting Admission/Observation Consideration of admission/observation: Escalation of care including admission/observation considered Patient would have been admitted to the hospital had she completed her work up and it had any findings where hospital admission was appropriate, her clinical presentation warranted hospital admission, had myself or any other emergency anthropology department chair had the ability to discuss need or lack there of for hospital admission, and the patient hadn't left the department without completing treatment. Lab Data [facility] Lab Attestation statement: I reviewed the patient's lab results. My interpretation of these results are in the [facility] Rationale portion of this note. 06/15/24 13:30 06/15/24 13:30 Labs: Lab Results 06/15/24 Range/Units 13:30 WBC 4.4 L (4.8-10.8) X10*3/uL RBC 4.94 (4.20-5.50) X10*6/uL Hgb 15.8 (12.0-16.0) g/dl Hct 45.6 (37.0-47.0) % MCV 92.3 (80.0-98.0) fL MCH 32.0 (27.0-33.0) pg MCHC 34.6 (31.0-35.0) g/dl RDW 12.9 (11.0-16.0) % Plt Count 205 (160-400) X10*3/uL MPV 10.6 (9.4-12.3) fL Immature Gran % (Auto) 0.2 (0.0-0.4) % Neut % (Auto) 43.3 L (45-73) % Lymph % (Auto) 46.2 H (20-40) % [place] % (Auto) 6.2 (2-11) % Eos % (Auto) 3.2 (0-4) % Baso % (Auto) 0.9 (0-2) % Lymph # (Auto) 2.0 (1.2-4.9) X10*3/uL [place] # (Auto) 0.3 (0.1-1.2) X10*3/uL Eos # (Auto) 0.1 (0.0-0.4) X10*3/uL Baso # (Auto) 0.0 (0.0-0.2) X10*3/uL Abs Immat Gran (auto) 0.01 (0.00-0.03) X10*3/uL Absolute Neuts (auto) 1.9 L (2.0-8.3) x10*3/uL Absolute Nucleated RBC 0.000 (0.0-0.012) X10*3/uL Nucleated RBC % (auto) 0.0 (0.0-0.2) /100WBC Sodium 142 (135-145) mmol/L Potassium 4.9 (3.3-5.1) mmol/L Chloride 109 H (96-108) mmol/L Carbon Dioxide 26 (22-29) mmol/L Anion Gap 12 (12-20) BUN 7 L (9-16) mg/dL Creatinine 0.73 (0.5-1.4) mg/dL Estim Creat Clear Calc 83.9 Estimated GFR > 60 Random Glucose 94 (60-115) mg/dL Calcium 9.8 D (8.4-10.2) mg/dL Magnesium 2.0 (1.6-2.6) mg/dL Total Bilirubin 0.6 (0.0-1.0) mg/dL AST 15 (5-31) U/L ALT 13 (0-31) U/L Alkaline Phosphatase 69 (39-117) U/L Total Protein 7.6 (6.5-8.0) g/dL Albumin 4.3 (3.5-5.0) g/dL Beta HCG, Quant < 2 mIU/mL Urine Color Dark Yellow Urine Appearance Clear Urine pH 7.0 (5.0-9.0) Ur Specific [place] 1.025 (1.005-1.025) Urine Protein Trace (Neg-Trace) mg/dL Urine Glucose (UA) Negative (Negative) mg/dL Urine Ketones Trace (Negative) mg/dL Urine Blood Negative (Negative) Urine Nitrite Negative (Negative) Ur Leukocyte Esterase Negative (Negative) Influenza Type A (PCR) NEGATIVE (Negative) Influenza Type B (PCR) NEGATIVE (Negative) RSV RNA Qual (PCR) NEGATIVE (Negative) SARS-CoV-2 RNA (RT-PCR) NEGATIVE (Negative) Discharge Plan Discharge Clinical Impression: Abdominal pain Patient Disposition: Left W/O Completing Treatment Prescriptions: No Action loperamide [Imodium A-D] 2 mg capsule 2 mg PO Q4H PRN (Reason: loose stool) Qty: 20 0RF Rx Instructions: administer after each loose stool until symptoms controlled; do not exceed 8 mg per 24 hrs ondansetron HCl [Zofran] 4 mg tablet 4 mg PO Q8H PRN (Reason: nausea and vomiting) Qty: 7 0RF famotidine 20 mg tablet 20 mg PO DAILY sumatriptan succinate 100 mg tablet 100 mg PO ONCE duloxetine 60 mg capsule,delayed release(DR/EC) 60 mg PO DAILY venlafaxine 75 mg capsule,extended release 24hr 75 mg PO QAM gabapentin 100 mg capsule 100 mg PO TID Discharge Date/Time: 06/15/24 22:43
[2024-06-15 13:42] LABS: MANUAL DIFF FLAG NO
[2024-06-15 13:47] LABS: Basophils Percent Auto 0.9 % (0-2); Eosinophils Absolute Auto 0.1 X10*3/uL (0.0-0.4); Eosinophils Percent Auto 3.2 % (0-4); Hematocrit 45.6 % (37.0-47.0); Hemoglobin 15.8 g/dl (12.0-16.0); Imm Gran Abs Auto 0.01 X10*3/uL (0.00-0.03); Imm Gran Pct Auto 0.2 % (0.0-0.4); Lymphocytes Percent Auto 46.2 % (20-40); Mean Corpuscular HGB Conc 34.6 g/dl (31.0-35.0); Mean Corpuscular Volume 92.3 fL (80.0-98.0); Mean Platelet Volume 10.6 fL (9.4-12.3); Monocytes Absolute Auto 0.3 X10*3/uL (0.1-1.2); Monocytes Percent Auto 6.2 % (2-11); Neutrophils Absolute Auto 1.9 x10*3/uL (2.0-8.3); Neutrophils Percent Auto 43.3 % (45-73); Platelet Count 205 X10*3/uL (160-400); Red Blood Count 4.94 X10*6/uL (4.20-5.50); Red Cell Distribution Width 12.9 % (11.0-16.0); White Blood Count 4.4 X10*3/uL (4.8-10.8)
[2024-06-15 13:49] LABS: Appearance Urine Clear; Color Urine Dark Yellow; Glucose Urine UA Negative (Negative); Leukocyte Esterase Urine Negative (Negative); Nitrite Urine Negative (Negative); Specific Gravity - Urine 1.025 (1.005-1.025); Urine Blood Negative (Negative); Urine Ketones Trace mg/dL (Negative); Urine Protein Trace mg/dL (Neg-Trace)
[2024-06-15 14:05] LABS: Alanine Aminotransferase 13 U/L (0-31); Albumin Level 4.3 g/dL (3.5-5.0); Alkaline Phosphatase 69 U/L (39-117); Anion Gap 12 (12-20); Aspartate Amino Transferase 15 U/L (5-31); Bilirubin Total 0.6 mg/dL (0.0-1.0); Blood Urea Nitrogen 7 mg/dL (9-16); Calcium 9.8 mg/dL (8.4-10.2); Carbon Dioxide 26 mmol/L (22-29); Chloride 109 mmol/L (96-108); Creatinine Clr Calc Pharmacy 83.9; Estimated Glomerular Filt Rate > 60; Glucose Random 94 mg/dL (60-115); HCG Quantitative < 2 mIU/mL; Potassium 4.9 mmol/L (3.3-5.1); Sodium 142 mmol/L (135-145); Total Protein 7.6 g/dL (6.5-8.0)
[2024-06-15 14:27] LABS: Influenza A PCR NEGATIVE (Negative); Influenza B PCR NEGATIVE (Negative); Resp Syncy Virus RNA Qual PCR NEGATIVE (Negative); SARS COV2 PCR INHOUSE NEGATIVE (Negative)
[2024-06-15 17:36] VITALS: BP 143/86; PULSE 52; RESP 16; TEMP 36.7; O2SAT 100
== END 2024-06-15 22:43 | disposition left against medical advice (07) ==
PROVIDERS: Physician Assistant Medical; Emergency Provider Emergency Medicine; PCP Internal Medicine
DX: R10.9 Unspecified abdominal pain (principal); R50.9 Fever, unspecified; R11.2 Nausea with vomiting, unspecified; F17.210 Nicotine dependence, cigarettes, uncomplicated; Z79.899 Other long term (current) drug therapy; Z03.818 Encounter for observation for suspected exposure to other biological agents ruled out
CPT/HCPCS: 0241U; 80053; 81003; 83735; 84702; 85025; 99282; 99283